=== PATIENT | female | born 1950 | race Caucasian/White ===

== ENCOUNTER 2025-05-07 10:37 | Inpatient (IN) ==
--- NOTE | 2025-04-17 14:36 | PAT Medication Instructions ---
Medication Instructions Date of Service April 17, 2025 Home Medications acetaminophen 650 mg tablet,extended release (Tylenol Arthritis Pain) 650 mg PO DAILY PRN Pain apixaban 2.5 mg tablet (Eliquis) 2.5 mg PO BID aspirin 81 mg tablet 81 mg PO QAM baclofen 5 mg tablet 5 mg PO TID calcitriol 0.25 mcg capsule 0.25 mcg PO BID cholecalciferol (vitamin D3) 125 mcg (5,000 unit) tablet (Vitamin D3) 125 mcg PO BID ferrous sulfate 325 mg (65 mg iron) tablet (Iron (ferrous sulfate)) 325 mg PO QAM furosemide 40 mg tablet 40 mg PO BID gabapentin 300 mg capsule 300 mg PO TID leflunomide 20 mg tablet 20 mg PO QAM metoprolol succinate 25 mg tablet,extended release 24 hr 25 mg PO QAM montelukast 10 mg tablet 10 mg PO HS sennosides 8.6 mg tablet (Vegetable Laxative) 8.6 mg PO QAM spironolactone 25 mg tablet 25 mg PO QAM tramadol 50 mg tablet 50 mg PO DAILY PRN Pain zinc 50 mg tablet 50 mg PO QAM MEDICATION INSTRUCTIONS: ASK your prescriber and surgeon apixaban 2.5 mg tablet (Eliquis) 2.5 mg PO BID aspirin 81 mg tablet 81 mg PO QAM DO NOT take the morning of surgery calcitriol 0.25 mcg capsule 0.25 mcg PO BID cholecalciferol (vitamin D3) 125 mcg (5,000 unit) tablet (Vitamin D3) 125 mcg PO BID zinc 50 mg tablet 50 mg PO QAM sennosides 8.6 mg tablet (Vegetable Laxative) 8.6 mg PO QAM ferrous sulfate 325 mg (65 mg iron) tablet (Iron (ferrous sulfate)) 325 mg PO QAM spironolactone 25 mg tablet 25 mg PO QAM furosemide 40 mg tablet 40 mg PO BID Take morning of surgery With a small sip of water, OTHERWISE NOTHING TO EAT OR DRINK AFTER MIDNIGHT: acetaminophen 650 mg tablet,extended release (Tylenol Arthritis Pain) 650 mg PO DAILY PRN Pain baclofen 5 mg tablet 5 mg PO TID metoprolol succinate 25 mg tablet,extended release 24 hr 25 mg PO QAM tramadol 50 mg tablet 50 mg PO DAILY PRN Pain gabapentin 300 mg capsule 300 mg PO TID Take evening before surgery acetaminophen 650 mg tablet,extended release (Tylenol Arthritis Pain) 650 mg PO DAILY PRN Pain baclofen 5 mg tablet 5 mg PO TID calcitriol 0.25 mcg capsule 0.25 mcg PO BID cholecalciferol (vitamin D3) 125 mcg (5,000 unit) tablet (Vitamin D3) 125 mcg PO BID furosemide 40 mg tablet 40 mg PO BID montelukast 10 mg tablet 10 mg PO HS gabapentin 300 mg capsule 300 mg PO TID Other Notes ASK your prescriber for instructions: leflunomide 20 mg tablet 20 mg PO QA If you have any questions please call us at [phone] or [phone] or [phone] or [phone]
--- NOTE | 2025-04-25 09:46 | Anesthesiology Consultation ---
Date of Service April 25, 2025 Assessment & Plan (1) Encounter for pre-operative examination: Chart Review Chart Review: Pending: Refer to Additional Notes / Consult section (pending surgeon ordered PCP clearance/response to optimization note and final surgeon ordered cardio clearance) and Patient seen in Pre Admission Testing - Awaiting PCP clearance 05/01/25 (Dr. Fernandes)- please send preop testing and optimization note re: elevated creatinine/anemia/possible reflux episode to PCP to address at appt - Awaiting addendum to cardio letter re: if patient is optimized to proceed with surgery (spoke with cardio office 04/26/25) Patient with [employer] ICD/pacemaker- discussed with Dr. Herrera- due to nature of procedure and lumbar levels being fused- pacemaker rep is NOT needed for DOS - Eliquis instructions per surgeon and prescribing provider- surgeon's office will follow up with patient re: instructions per email Per PAT appt on 04/25/25, no recent illness/disease exposures, illness related symptoms, or recent illness/disease positive tests. Will leave to surgeon's discretion if preop Covid testing needed Per cardiology letter 04/18/2025 = patient may hold her Eliquis for 72 hours prior and resume postop as soon as deemed safe by you. She can hold aspirin for shortest duration possible and resume postop as deemed safe. Patient seen by cardiology 01/01/2025 = patient seen for follow-up visit. Has been doing well clinically. Patient is considering proceeding with spinal surge ry. From a cardiac perspective, she has no new issues or complaints. Has stable THOMPSON. Atrial fibrillationparoxysmal/subclinical/asymptomatic. Continue Eliquis. Heart failure with recovered EF/nonischemic cardiomyopathy. Compensated. Echoes annually. Patient is an acceptable cardiac risk to undergo general anesthesia and spinal surgery if she is deemed a candidate from a neurosurgeon. We would need to check a stress test prior to her proceeding given her known chronic total occlusion of her LAD to ensure that she does not have large burden of ischemia. CRTDdevice functioning normally. Continue routine interrogations. Hypertensioncontrolled. Dyslipidemiaresume statin. CAD status post 2 LAD stents March 2022. Continue aspirin indefinitely. Follow- up in 6 months. Teaching & Discussion Pre-Anesthesia Teaching/Discussion Notes: Instructed NPO after midnight before surgery,except medications with 15 cc of water. Medication instructions provided according to the PAT guidelines. History Surgery Operation Date: 05/07/25 12:15 Proposed Procedures p L4-S1 Decompression and Fusion, Spinal Cord Monitoring - Raad Lagunas DO Height/Weight Height: 4 ft 8 in Weight: 52.4 kg Allergies Allergy/AdvReac Type Severity Reaction Status Date / Time No Known Allergies Allergy Verified 04/13/25 13:49 Medications Home Medications Medication Instructions Recorded Confirmed Last Taken acetaminophen 650 mg 650 mg PO DAILY PRN Pain 04/13/25 04/13/25 Unknown tablet,extended release (Tylenol Arthritis Pain) apixaban 2.5 mg tablet (Eliquis) 2.5 mg PO BID 04/13/25 04/13/25 Unknown aspirin 81 mg tablet 81 mg PO QAM 04/13/25 04/13/25 Unknown baclofen 5 mg tablet 5 mg PO TID 04/13/25 04/13/25 Unknown calcitriol 0.25 mcg capsule 0.25 mcg PO BID 04/13/25 04/13/25 Unknown cholecalciferol (vitamin D3) 125 125 mcg PO BID 04/13/25 04/13/25 Unknown mcg (5,000 unit) tablet (Vitamin D3) ferrous sulfate 325 mg (65 mg 325 mg PO QAM 04/13/25 04/13/25 Unknown iron) tablet (Iron (ferrous sulfate)) furosemide 40 mg tablet 40 mg PO BID 04/13/25 04/13/25 Unknown gabapentin 300 mg capsule 300 mg PO TID 04/13/25 04/13/25 Unknown leflunomide 20 mg tablet 20 mg PO QAM 04/13/25 04/13/25 Unknown metoprolol succinate 25 mg 25 mg PO QAM 04/13/25 04/13/25 Unknown tablet,extended release 24 hr montelukast 10 mg tablet 10 mg PO HS 04/13/25 04/13/25 Unknown sennosides 8.6 mg tablet 8.6 mg PO QAM 04/13/25 04/13/25 Unknown (Vegetable Laxative) spironolactone 25 mg tablet 25 mg PO QAM 04/13/25 04/13/25 Unknown tramadol 50 mg tablet 50 mg PO DAILY PRN Pain 04/13/25 04/13/25 Unknown zinc 50 mg tablet 50 mg PO QAM 04/13/25 04/13/25 Unknown Past Medical History Medical History (Updated 04/30/25 @ 13:38 by Janel Goldman PA-C) Atrial fibrillation eliquis/metoprolol--follows with [facility] Cardiology Dr. 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, distal Cx 50-60%, RCA 10%) History of anemia History of blood transfusion Around 04/2024 Hyperlipidemia Hypertension ICD (implantable cardioverter-defibrillator) in place [employer]-D - initially placed 02/2010 - new battery placed in 2020 Per patient- possible cardiac arrest during 2020 generator change for ICD - patient unsure of specifics- family members have no recollection of this- no documentation of this in cardio records (attempted to get anesthesia records but records were unavailable- has done well with other anesthesia) Nonischemic cardiomyopathy HF with recovered EF per cardio records On anticoagulant therapy eliquis Osteoarthritis Stage 3 chronic kidney disease TIA (transient ischemic attack) - presented with amnesia - 2008- no subsequent issues- no CVA noted per patient Exercise / Class Metabolic Activity III < 4 Walking/Shop/Light housework (one flight of stairs - no chest pain, mild SOB- occasional cane use ) Past Family History Family History Other No family history of adverse response to anesthesia Past Surgical History Surgical History History of appendectomy History of cardiac cath x2 2009 (prior to ICD placement) and 2021 (due to sob) both done at [facility]--with a total of 2 stents placed in 2021 History of section x2--appendix removed with 1st History of dilatation and curettage History of heart artery stent 2 stents placed--[facility] History of hysterectomy History of open reduction and internal fixation (ORIF) procedure left wrist--hardware in place History of tooth extraction all teeth removed S/P ICD (internal cardiac defibrillator) procedure [employer] Status post epidural steroid injection lumbar spine and bilt sacroiliac joint injections Past Anesthesia History No Hx of Anesthesia Complications and No Family Hx of Anesthesia Complications History of PONV No Hx of PONV and No Hx of Motion Sickness Social History Smoking Status: Never smoker Do You Dip or Chew Tobacco: No Hx Alcohol Use: No Hx Substance Use: No substance use type: does not use Review of Systems - Had "odd" sensation to mid sternal chest discomfort. Relieved with antacid. Lasted 20-25 minutes. No radiation. No SOB or nausea. No new THOMPSON. Had already been optimized by cardiology per patient- will send note to PCP inquiring if further work up or cardio re-evaluation needed - Rare reflux Patient denies shortness of breath, cough, wheezing, palpitations. No hx of seizures, apnea/loud snoring. No hx of blood clots Physical Exam Vital Signs VITALS BP 127/69 P 64 TEMP 97.5 SP02 96% RESP 16 Constitutional no acute distress ENMT Mouth: + small oral opening; no TMJ clicking Thyromental Distance: < 3.5 Finger Breadths (3.0) Mallampati Class: III Full dentures upper and lower Neck + limited neck extension Respiratory normal respiratory effort; no respiratory distress Auscultation: lungs clear to auscultation bilaterally; no wheezes Cardiovascular Heart Sounds: no murmur Vessels: no carotid bruit Irregularly irregular - rate controlled Musculoskeletal Spine: no pain with cervical ROM Extremities: extremities normal to inspection Psychiatric Orientation: alert Lab Results Anesthesia Preop Results Results Anesthesia Widget: WBC 9.59 K/ul (4.8-10.8) 04/25/25 Hgb 11.3 g/dl (12.0-16.0) L 04/25/25 Hct 35.0 % (37.0-47.0) L 04/25/25 Plt 329 K/uL (130-400) 04/25/25 Na 140 mmol/L (136-145) 04/25/25 K 3.4 mmol/L (3.5-5.1) L 04/25/25 Cl 102 mmol/L (98-107) 04/25/25 CO2 27 mmol/L (21-32) 04/25/25 BUN 36 mg/dl (6-23) H 04/25/25 Creat 1.68 mg/dl (0.6-1.2) H 04/25/25 Glucose Level 82 mg/dl (70-99(Fasting)) 04/25/25 PT 10.9 Seconds (9.0-12.0) 04/25/25 PTT 30 Seconds (21-31) 04/25/25 INR 1.0 (0.9-1.1) 04/25/25 Urine Color Yellow 04/25/25 Urine Appearance Clear (Clear) 04/25/25 Urine pH 5.0 (4.5-7.5) 04/25/25 Urine Specific [place] 1.008 (1.000-1.030) 04/25/25 Urine Protein Negative (Negative) 04/25/25 Urine Glucose (UA) Negative (Negative) 04/25/25 Urine Ketones Negative (Negative) 04/25/25 Urine Blood Negative (Negative) 04/25/25 Urine Nitrite Negative (Negative) 04/25/25 Urine Bilirubin Negative (Negative) 04/25/25 Urine Urobilinogen Negative (Negative) 04/25/25 Urine Leukocyte Esterase 1+ (Negative) H 04/25/25 Urine WBC (Auto) 0-5 /hpf (0-5) 04/25/25 Urine RBC (Auto) 0-2 /hpf (0-2) 04/25/25 Urine Hyaline Casts (Auto) 3-5 /lpf (0-2) H 04/25/25 Urine Epithelial Cells (Auto) 0-2 /hpf (0-2) 04/25/25 Urine Bacteria (Auto) None Seen (None Seen) 04/25/25 Blood Type O Positive 04/25/25 Antibody Screen NEGATIVE 04/25/25 Testing Laboratory Results Elevated creatinine- will send optimization note inquiring if this is baseline for patient Mild anemia- will send optimization note to PCP inquiring if this is baseline for patient Electrocardiogram Date: 04/25/25 Ventricular paced rhythm with occ PVCs at 82bpm Biventricular pacemaker detected Chest X-Ray Date: 04/25/25 Findings: + NAD Echocardiogram Date: 01/16/25 Normal LV size. LV has low normal systolic function Calculated LVEF 50% Abnormal septal motion consistent with abnormal electrical activation Normal RV size. The RV has normal function Thickened aortic valve Thickened mitral valve with mild regurgitation Mild to moderate TR Mild biatrial enlargement Moderate pulmonary hypertensionthe estimated PASP is 51 mmHg. Catheter seen in the right heart consistent with pacemaker defibrillator lead. Diastolic function could not be assessed due to indeterminate data. Dilated inferior vena cava, consistent with increased right atrial pressure As compared to 05/04/2024no significant change Stress Test Date: 01/25/25 Type: nuclear SPECT perfusion images are abnormal Resting perfusion abnormality in the lateral wall, consistent with prior infarction. There is no significant regadenoson induced perfusion abnormality detected to suggest the presence of ischemia LVEF is normal In this patient with known underlying CAD, the absence of significant regadenoson induced perfusion abnormality indicates that the probability of significant residual ischemia being present is low Cardiac Catheterization Date: 03/18/22 Indication: 99% stenosis of mid LAD. Impression: Successful angioplasty and stenting of subtotal occlusion of mid LAD with 2 ZURDO via right radial artery access. Cervical Spine Date: 04/25/25 No acute bony abnormality. Osteopenia. Slight anterior translation of the C3 vertebral body with flexion. (Surgeon's office informed to let Dr. Lagunas know) Other Testing ICD/pacemaker check 02/20/2025 = [employer] device. Implant date September 15, 2021. Battery life 7 years from February 20, 2025. Atrial paced 4%. RV paced 97%. LV paced 98%. Mode DDDR. Total events: 151 no therapy programmed, 23 NonSustV, 67 other untreated, 311 ATR
[2025-05-07] MEDS: LACTATED RINGER'S 1,000 ML IV SCH ×2 (10:07→15:35)
[~2025-05-07 10:37] MED LIST: CeleBREX 200 MG CAP PO SCH; DEXAMETHASONE SOD INJ 4 MG/ML VIAL ONE; GLYCOPYRROLATE 0.2 MG/ML VIAL ONE; LIDOCAINE 2% 2 ML VIAL/AMP(20MG/ML) INFIL ONE; MIDAZOLAM HCL 1 MG/ML 2ML VIAL ONE; ONDANSETRON INJ 2 MG/ML 2 ML VIAL ONE; PROPOFOL IV EMULSION 10 MG/ML 20 ML VIAL IV ONE; ROCURONIUM BROMIDE 10 MG/ML 5 ML VIAL IV ONE; SUGAMMADEX SODIUM 200 MG/2 ML VIAL IV ONE
[2025-05-07] MEDS: LR 60ML/HR IV SCH (11:33)
[2025-05-07] MEDS ORDERED: PROMETHAZINE HCL 6.25 MG in SODIUM CHLORIDE 0.9% 50 ML IV PRN (11:44)
[2025-05-07] MEDS ORDERED: HYDROmorphone INJ 2 MG/ML SYR/VIAL IV PRN (11:44)
[2025-05-07] MEDS ORDERED: ONDANSETRON INJ 2 MG/ML 2 ML VIAL IV PRN ×2 (11:44→15:20)
[2025-05-07] MEDS ORDERED: ATROPINE SULFATE 0.1 MG/ML 10ML SYR IV PRN (11:44)
--- NOTE | 2025-05-07 11:44 | History & Physical Bridge Note ---
Date of Service May 07, 2025 History & Physical Bridge Note I have examined the patient, reviewed the History & Physical and in the interval since the performance of the History & Physical I have noted the following changes of clinical significance: no changes noted
--- NOTE | 2025-05-07 11:45 | History & Physical Report ---
Date of Service May 07, 2025 Assessment & Plan (1) Two-level lumbosacral spondylosis with radiculopathy: Plan: Decompression and fusion L4-S1 History of Present Illness Chief Complaint: Back and bilateral leg pain Primary Care Provider: Yamilet Fernandes DO This is a 74-year-old female who presents with chronic persistent back and leg pain after failing course of nonoperative care is here for surgical invention. Allergies Allergy/AdvReac Type Severity Reaction Status Date / Time No Known Allergies Allergy Verified 05/07/25 10:59 Home Medications Medication Instructions Recorded Confirmed Type acetaminophen 650 mg 650 mg PO DAILY PRN Pain 04/13/25 05/07/25 History tablet,extended release (Tylenol Arthritis Pain) apixaban 2.5 mg tablet (Eliquis) 2.5 mg PO BID 04/13/25 05/07/25 History aspirin 81 mg tablet 81 mg PO QAM 04/13/25 05/07/25 History baclofen 5 mg tablet 5 mg PO TID 04/13/25 05/07/25 History calcitriol 0.25 mcg capsule 0.25 mcg PO BID 04/13/25 05/07/25 History cholecalciferol (vitamin D3) 125 125 mcg PO BID 04/13/25 05/07/25 History mcg (5,000 unit) tablet (Vitamin D3) ferrous sulfate 325 mg (65 mg 325 mg PO QAM 04/13/25 05/07/25 History iron) tablet (Iron (ferrous sulfate)) furosemide 40 mg tablet 40 mg PO BID 04/13/25 05/07/25 History gabapentin 300 mg capsule 300 mg PO TID 04/13/25 05/07/25 History leflunomide 20 mg tablet (Arava) 20 mg PO QAM 04/13/25 05/07/25 History metoprolol succinate 25 mg 25 mg PO QAM 04/13/25 05/07/25 History tablet,extended release 24 hr montelukast 10 mg tablet 10 mg PO HS 04/13/25 05/07/25 History (Singulair) sennosides 8.6 mg tablet 8.6 mg PO QAM 04/13/25 05/07/25 History (Vegetable Laxative) spironolactone 25 mg tablet 25 mg PO QAM 04/13/25 05/07/25 History tramadol 50 mg tablet 50 mg PO DAILY PRN Pain 04/13/25 05/07/25 History zinc 50 mg tablet 50 mg PO QAM 04/13/25 05/07/25 History Past Med/Surg History Problem List (Updated 05/07/25 @ 11:45 by Raad Lagunas DO) Two-level lumbosacral spondylosis with radiculopathy Encounter for pre-operative examination Medical History (Updated 05/07/25 @ 11:45 by Raad Lagunas DO) Nonischemic cardiomyopathy HF with recovered EF per cardio records TIA (transient ischemic attack) - presented with amnesia - 2008- no subsequent issues- no CVA noted per patient CAD (coronary artery disease) s/p 2 LAD stents March 2022 (Per 01/19/22 cath- 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, distal Cx 50-60%, RCA 10%) Osteoarthritis Stage 3 chronic kidney disease History of blood transfusion Around 04/2024 History of anemia Hypertension Hyperlipidemia On anticoagulant therapy eliquis ICD (implantable cardioverter-defibrillator) in place [employer] IN[employer]UMENT [employer]PER[employer]OR-D - initially placed 02/2010 - new battery placed in 2020 Per patient- possible cardiac arrest during 2020 generator change for ICD - patient unsure of specifics- family members have no recollection of this- no documentation of this in cardio records (attempted to get anesthesia records but records were unavailable- has done well with other anesthesia) Atrial fibrillation eliquis/metoprolol--follows with [facility] Cardiology Dr. Forest Barahona Surgical History History of heart artery stent 2 stents placed--[facility] Status post epidural steroid injection lumbar spine and bilt sacroiliac joint injections History of dilatation and curettage History of open reduction and internal fixation (ORIF) procedure left wrist--hardware in place History of appendectomy History of section x2--appendix removed with 1st History of hysterectomy History of tooth extraction all teeth removed S/P ICD (internal cardiac defibrillator) procedure [employer] History of cardiac cath x2 2009 (prior to ICD placement) and 2021 (due to sob) both done at [facility]--with a total of 2 stents placed in 2021 Family History Other No family history of adverse response to anesthesia Social History Smoking Status: Never smoker Second Hand Exposure: No; Do You Dip or Chew Tobacco: No; Tobacco Cessation Education Requested by Patient: No Hx Alcohol Use: No Hx Substance Use: No Preferred Language: Surinamese Communication Ability: Effective Scheduling Representative Required: No Beliefs That Will Affect Care: None Current Living Situation: Spouse Other Information That Helps Us Care for You: No Feels Safe at Home: Yes Safety Concerns: Feels Safe At This Time Assistive Devices: Denture - Upper, Denture - Lower and Glasses Physical Exam Physical Exam: Patient is alert and oriented Heart regular rhythm Lungs clear Results & Data Results & Data Vital Signs (Past 12 Hours) Vital Signs Temp Pulse Resp BP Pulse Ox O2 Del Method 05/07/25 11:16 36.4 C L 61 20 147/80 H 97 Room Air
[2025-05-07] MEDS: BUPIVACAINE/EPINEPHRINE 0.5% MPF 1:200,000 30 ML VIAL ONE (12:29)
[2025-05-07] MEDS: BUPIVACAINE/EPINEPHRINE 0.25% 1:200,000 30 ML VIAL ONE (12:29)
[2025-05-07] MEDS ORDERED: PHENYLEPHRINE 100MCG/ML 5ML SYR ONE (13:02)
[2025-05-07] MEDS: FLOSEAL HEMOSTATIC MATRIX 10ML TOP ONE (13:57)
[2025-05-07] MEDS: ceFAZolin 330 MG/ML 1 GM VIAL ONE (13:57)
--- NOTE | 2025-05-07 14:08 | Operative Report ---
Post Operative Report Pre & Post Diagnosis Operation Date: 05/07/25 12:15 Pre-Op Diagnosis: #1 Two Level Lumbosacral Spondylosis with Radiculopathy #2 spondylolisthesis L4-L5 #3 lumbar disc herniation L4-L5 with radiculopathy #4 lumbar spinal stenosis Post-Op Diagnosis: Same I identified the patient and participated in the time-out.: Yes Procedure Operation Date: 05/07/25 12:15 Actual Procedures #1 lumbar decompression with bilateral medial facetectomies and foraminotomies L3-L4, L4-5 and L5-S1. #2 posterior spinal fusion L4-S1. #3 placement po sterior instrumentation L4-S1 using medic Creo. #4 interbody fusion L4-L5 for #5 placed aspire 11 x 26 mm x 2 at L4-5 #6 placement locally harvested morselized autograft posterior gutters per #7 placement infuse collagen sponge combined with Koros in the posterior lateral gutters and os design and interbody space. #8 application of versa wrap of the exposed dura. Surgeon Raad Lagunas, Planning Division Superintendent Laura Roca Estimated Blood Loss 50 Findings Consistent with Post-Op Diagnosis Specimens None Indications This is a 74-year-old female presents above-mentioned diagnosis after failed course of nonoperative care she is here for surgical invention. Description of Procedure Patient was met with identified informed consent obtained. Patient was then taken to the operative suite underwent intubation placed in a prone position on the Cuong table atop the Rashard frame. All bony prominences well-padded eyes inspected to ensure no external pressure placed upon them. This point lumbar spine is prepped and draped in normal sterile fashion. Sharp dissection with the assistance of Bovie cautery from down to and exposing the lamina and transverse processes of L4-L5 and the sacral ala bilaterally. From caudal to cephalad fashion complete laminectomy of L5 was performed including bilateral medial facetectomies and foraminotomies followed by complete laminectomy of L4 with bilateral medial facetectomies and foraminotomies and lastly partial laminectomy of L3 with bilateral medial facetectomies to address all subar ticular stenosis. Massive disc herniation was noted at L4-5 bilaterally and excised in its entirety. Pedicle screws then placed in L4-L5 and S1 levels bilaterally with the assistance of fluoroscopy. By way the transforaminal portion of right discectomy of L4-L5 was performed endplates guided to subcortical bleeding bone and a 11 x 26 mm spiral cage filled with os design bone graft tapped in position. Then proceeded to the left transforaminal region at L4-5. Again discectomy performed. Endplates guided to subcortically bone. A second 11 x 26 mm spiral cage filled with os design bone graft tapped in position. Appropriate sized rods were then placed compressed and locked in final position bilaterally but the transverse processes of L4-5 and sacral ala burred to subcortical bleeding bone. Infuse collagen sponge combined with Koros and local autograft placed in the posterior gutters. First wrap placed over the exposed dura. 15 round PHIL drain inserted. The incision was then closed with 1 Vicryl the fascia 2-0 Vicryl subcutaneously and 4 Monocryl for final skin closure. Steri-Strips and sterile dressing placed. Patient waken taken to PACU in stable condition. Please note Laura Roca was present at the entire procedure and on the patient positioning complex portion of the surgery and final skin closure. I attest to the content of the Intraoperative Record and any orders documented therein. Any exceptions are noted below.
--- NOTE | 2025-05-07 14:25 | Fluoroscopy Report ---
FL lumbar spine 2-3V CLINICAL HISTORY: L4-S1 DECOMP AND FUSION COMPARISON STUDY: None FLUOROSCOPY TIME: 19 seconds FLUOROSCOPY IMAGES: 3 EXPOSURE DOSE: 9 mGy FINDINGS: Fluoroscopy was provided for lower lumbar fusion. IMPRESSION: Intraoperative fluoroscopy. ACT 112: Negative or not required by law. Electronically signed by: Darshan Deng M.D. 05/07/2025 2:24 PM
--- NOTE | 2025-05-07 15:12 | Anesthesiology Progress Note ---
Date of Service May 07, 2025 Anesthesia Post Procedure Vital Signs Vital Signs: Temp Pulse Pulse Resp BP Pulse Ox O2 Del Method 05/07/25 15:03 36.4 C L 81 12 154/87 H 92 Room Air 05/07/25 14:55 87 13 149/82 H 99 Room Air 05/07/25 14:45 96 H 12 154/83 H 100 Oxymask 05/07/25 14:35 100 H 12 155/89 H 100 Oxymask 05/07/25 14:26 35.7 C L 94 H 12 142/77 H 98 Oxymask 05/07/25 11:16 36.4 C L 61 20 147/80 H 97 Room Air O2 Flow Rate 05/07/25 15:03 0 05/07/25 14:55 0 05/07/25 14:45 4 05/07/25 14:35 8 05/07/25 14:26 8 05/07/25 11:16 Pain Intensity Right Upper Leg: Pain Intensity: 5 Transfer of Care Handoff Completed per policy Notes Mental Status: alert / awake / arousable and participated in evaluation Patient Amnestic to Procedure: Yes Nausea / Vomiting: adequately controlled Pain: adequately controlled Airway Patency, RR, SpO2: stable & adequate BP & HR: stable & adequate Hydration State: stable & adequate Anesthetic Complications: no major complications apparent
[2025-05-07] MEDS ORDERED: METOCLOPRAMIDE HCL INJ 5 MG/ML 2 ML VIAL IV PRN (15:20)
[2025-05-07] MEDS ORDERED: HYDROmorphone INJ 0.5 MG/0.5 ML SYR IV PRN (15:20)
[2025-05-07] MEDS ORDERED: LORazepam 0.5 MG TAB PO PRN (15:20)
[2025-05-07] MEDS ORDERED: ACETAMINOPHEN 1,000 MG/100 ML VIAL IV PRN (15:20)
[2025-05-07] MEDS ORDERED: HYDROmorphone INJ 1 MG/ML SYRINGE IV PRN (15:20)
[2025-05-07] MEDS ORDERED: MAGNESIUM HYDROXIDE SUSP 30 ML UDC PO PRN (15:20)
[2025-05-07] MEDS ORDERED: ONDANSETRON 4 MG OD TAB PO PRN (15:20)
[2025-05-07] MEDS ORDERED: NALOXONE HCL 0.4 MG/1 ML VIAL/CARP IV PRN (15:20)
[2025-05-07] MEDS ORDERED: PROMETHAZINE 12.5 MG/50.5 ML BAG IV PRN (15:20)
[2025-05-07] MEDS ORDERED: DO NOT ADMINISTER FLU VACCINE PRN (15:20)
[2025-05-07] MEDS ORDERED: DO NOT ADMINISTER PNEUMOCOCCAL VACCINE PRN (15:20)
[2025-05-07] MEDS ORDERED: ALUMINUM/MAGNESIUM SUSP 30 ML UDC PO PRN (15:20)
[2025-05-07] MEDS ORDERED: diphenhydrAMINE Capsule 25 MG CAP PO PRN (15:20)
[2025-05-07] MEDS ORDERED: SOD PHOSPHATE/SOD BIPHOSPHATE ENEMA 132 ML BTL PR PRN (15:20)
[2025-05-07] MEDS: ACETAMINOPHEN 500 MG TAB PO SCH (15:29)
[2025-05-07] MEDS: GABAPENTIN 300 MG CAP PO SCH ×2 (15:29→20:43)
--- NOTE | 2025-05-07 15:37 | Hospitalist Consultation ---
Date of Consultation May 07, 2025 Assessment & Plan (1) Two-level lumbosacral spondylosis with radiculopathy: (2) S/P spinal surgery: Patient is a 74-year-old female with past medical history significant for HLD, HTN, CAD s/p LAD stenting x 2 in March 2022, mild bilateral carotid artery stenosis, chronic systolic HF, history of idiopathic nonischemic cardiomyopathy with recovered EF, paroxysmal atrial fibrillation anticoagulated on Eliquis, LBBB, history PVCs, paroxysmal SVT s/p biventricular pacemaker placement, CKD stage IIIb, anemia of chronic disease, seronegative rheumatoid arthritis, IBS and other problems listed below who is being seen in consultation for routine postoperative medical management after undergoing elective L4-S1 decompression and fusion performed by Dr. Lagunas earlier today. POD #0 s/p L4-S1 decompression and fusion with Dr. Lagunas Per primary service for pain control, wound care, anticoagulation and activities Continue incentive spirometry, PT/OT when appropriate as per primary service Monitor H/H for ABLA [preop Hgb = 11.3, EBL = 50cc] and transfuse blood products PRN (3) Anemia of chronic disease: Baseline Hgb 10-12 Monitor postop H/H as per above, continue Fe supplementation (4) Paroxysmal A-fib: Hold Eliquis for now --> resume postop as per primary service Continue Toprol-XL w/ hold parameters (5) Rheumatoid arthritis: Hold leflunomide postop for now -Can resume as per primary service (6) CAD (coronary artery disease): S/p LAD stenting x 2 in 03/2022 F/w cardiology @ [facility]; continue ASA as per primary service (7) Stage 3b chronic kidney disease (CKD): Baseline Cr 1.3-1.7 per chart review Monitor AM labs, avoid nephrotoxic agents when able (8) Chronic systolic heart failure: TTE, 07/2023: LVEF = 55-60%, mild MR, mild TR, moderately enlarged LA, borderline pulm HTN, grade I DD Appears euvolemic on postop exam --> will hold Aldactone for now; hold Lasix for 2nite and resume tomorrow AM DVT Prophylaxis: As per primary service PCP: Yamilet Fernandes, Disposition: Routine d/c planning as per primary service Thank you for this consultation. We will follow the patient with you during their hospital stay. [facility] via [employer]. Patient seen in collaboration with Dr. Hernandez. Please see addendum. I spent a total of 42 minutes coordinating, documenting, and providing care for this patient excluding time spent in the performance of separately billed services or time spent by another provider/QHP. This included personally reviewing all current laboratories and imaging studies, medical reconciliation, outpatient chart review and discussion with specialists. This chart was completed in part utilizing Speech Voice Recognition Software. Grammatical errors, random word insertions, pronoun errors, and incomplete sentences are an occasional consequence of this system due to software limitations, ambient noise, and hardware issues. Any formal questions or concerns about the content, text, or information contained within the body of this dictation should be directly addressed to the provider for clarification. Supervising Physician Co-Signing Physician Notes I have seen and discussed the case with the collaborating advanced practitioner. I agree with the above H&P. I have reviewed and confirmed the patients medical history, the findings on physical examination, and the patients diagnosis and treatment plan with Arnold MORIN and agree with the information documented. In short, Ms. Lagunas is a 74 year old woman admitted for severe spinal stenosis with radiculopathy s/p lumbar decompression and fusion 05/07. Reports no pain on time of exam, with resolution of RLE symptoms. Denies any chest pain palpitations sob or other acute concerns Exam notable for a pleasant woman, no distress, RRR no apparent m/r/g, CTABL #Lumbar spondylosis with radiculopathy and stenosis s/p decompression and fusion L4-S1 POD 0 follow labs for post operative anemia PT/OT analgesia per primary #constipation last bm Wednesday, plan for bowel regimen #CKD III no postoperative hypotension noted, baseline 1.5-1.7 order BMP avoid nephrotoxic agents hold spironolactone for now, resume as able #Chronic anemia baseline 11~ trend cbc #PAF on eliquis, held for now, resume as soon as able per primary service continue BB #HFpEF s/p BiV defibrillator #chronic CAD s/p ZURDO x 2 2021 Echocardiogram from 2022 revealed the presence of preserved LVEF at 55-60% with mild MR, TR and grade 1 diastolic dysfunction. Resume ASA as soon as able per clearance of primary service Continue BB hold spironolactone clinically euvolemic if not on more dry side, old lasix until am rest of plan as above I spent a total of 15 minutes coordinating, documenting, and providing care for this patient excluding time spent in the performance of separately billed services. All of the aforementioned completed outside of collaborating with the assigned advanced practitioner for a full treatment plan. I have reviewed the advanced practitioner's documentation, and I agree with, and take responsibility for the plan of care History of Present Illness Reason for Consultation: Routine postoperative medical management Requesting Physician: Raad Lagunas DO Attending Physician: Raad Lagunas DO History of Present Illness Patient is a 74-year-old female with past medical history significant for HLD, HTN, CAD s/p LAD stenting x 2 in March 2022, mild bilateral carotid artery stenosis, chronic systolic HF, history of idiopathic nonischemic cardiomyopathy with recovered EF, paroxysmal atrial fibrillation anticoagulated on Eliquis, LBBB, history PVCs, paroxysmal SVT s/p biventricular pacemaker placement, CKD stage IIIb, anemia of chronic disease, seronegative rheumatoid arthritis, IBS and other problems listed below who is being seen in consultation for routine postoperative medical management after undergoing elective L4-S1 decompression and fusion performed by Dr. Lagunas earlier today. History obtained from the patient and associated chart review. Patient feeling well postoperatively; endorses adequate pain control. Tolerating sips of clear liquids without issue. Denies any SOB, chest pain, lightheadedness or dizziness. No reported N/V. Has Boo catheter in place which is draining spontaneously without issue. Denies any dysuria or hematuria. Also has PHIL drain x [address] which is draining serosanguineous output without difficulty. Allergies Allergy/AdvReac Type Severity Reaction Status Date / Time No Known Allergies Allergy Verified 05/07/25 10:59 Home Medications Medication Instructions Recorded Confirmed Type acetaminophen 650 mg 650 mg PO DAILY PRN Pain 04/13/25 05/07/25 History tablet,extended release (Tylenol Arthritis Pain) apixaban 2.5 mg tablet (Eliquis) 2.5 mg PO BID 04/13/25 05/07/25 History aspirin 81 mg tablet 81 mg PO QAM 04/13/25 05/07/25 History baclofen 5 mg tablet 5 mg PO TID 04/13/25 05/07/25 History calcitriol 0.25 mcg capsule 0.25 mcg PO BID 04/13/25 05/07/25 History cholecalciferol (vitamin D3) 125 125 mcg PO BID 04/13/25 05/07/25 History mcg (5,000 unit) tablet (Vitamin D3) ferrous sulfate 325 mg (65 mg 325 mg PO QAM 04/13/25 05/07/25 History iron) tablet (Iron (ferrous sulfate)) furosemide 40 mg tablet 40 mg PO BID 04/13/25 05/07/25 History gabapentin 300 mg capsule 300 mg PO TID 04/13/25 05/07/25 History leflunomide 20 mg tablet (Arava) 20 mg PO QAM 04/13/25 05/07/25 History metoprolol succinate 25 mg 25 mg PO QAM 04/13/25 05/07/25 History tablet,extended release 24 hr montelukast 10 mg tablet 10 mg PO HS 04/13/25 05/07/25 History (Singulair) sennosides 8.6 mg tablet 8.6 mg PO QAM 04/13/25 05/07/25 History (Vegetable Laxative) spironolactone 25 mg tablet 25 mg PO QAM 04/13/25 05/07/25 History tramadol 50 mg tablet 50 mg PO DAILY PRN Pain 04/13/25 05/07/25 History zinc 50 mg tablet 50 mg PO QAM 04/13/25 05/07/25 History Patient History Medical History Nonischemic cardiomyopathy HF with recovered EF per cardio records TIA (transient ischemic attack) - presented with amnesia - 2008- no subsequent issues- no CVA noted per patient CAD (coronary artery disease) s/p 2 LAD stents March 2022 (Per 01/19/22 cath- LAD 100% NEGATIVE SPOTTER, distal Cx 50-60%, RCA 10%) Osteoarthritis Stage 3 chronic kidney disease History of blood transfusion Around 04/2024 History of anemia Hypertension Hyperlipidemia On anticoagulant therapy eliquis ICD (implantable cardioverter-defibrillator) in place [employer]-D - initially placed 02/2010 - new battery placed in 2020 Per patient- possible cardiac arrest during 2020 generator change for ICD - patient unsure of specifics- family members have no recollection of this- no documentation of this in cardio records (attempted to get anesthesia records but records were unavailable- has done well with other anesthesia) Atrial fibrillation eliquis/metoprolol--follows with [facility] Cardiology Dr. Forest Barahona Surgical History History of heart artery stent 2 stents placed--[facility] Status post epidural steroid injection lumbar spine and bilt sacroiliac joint injections History of dilatation and curettage History of open reduction and internal fixation (ORIF) procedure left wrist--hardware in place History of appendectomy History of section x2--appendix removed with 1st History of hysterectomy History of tooth extraction all teeth removed S/P ICD (internal cardiac defibrillator) procedure [employer] History of cardiac cath x2 2009 (prior to ICD placement) and 2021 (due to sob) both done at [facility]--with a total of 2 stents placed in 2021 Family History Other No family history of adverse response to anesthesia Social History Smoking Status: Never smoker Second Hand Exposure: No; Do You Dip or Chew Tobacco: No; Tobacco Cessation Education Requested by Patient: No Hx Alcohol Use: No Hx Substance Use: No Preferred Language: Nauruan Communication Ability: Effective Vertica Architect Required: No Beliefs That Will Affect Care: None Current Living Situation: Spouse Other Information That Helps Us Care for You: No Feels Safe at Home: Yes Safety Concerns: Feels Safe At This Time Assistive Devices: Denture - Upper, Denture - Lower and Glasses Review of Systems Review of Systems: At least ten systems reviewed and negative, except as noted in the HPI. Physical Exam Physical Exam: General: Elderly F, NAD, sitting up in bed, pleasant, A&Ox3, family members present at bedside HEENT: Normocephalic, atraumatic, external ear and nose normal, oropharynx slightly dry Respiratory: Normal respiratory effort, lungs clear to auscultation bilaterally Cardiovascular: Regular rate, paced rhythm, normal peripheral pulses, no BLE edema, BLE SCDs/TEDs in place Abdomen/GI: Normal bowel sounds, soft, nontender to palpation in all quadrants : Boo catheter intact and draining clear/yellow urine w/o difficulty Extremities/MSK: No cyanosis/clubbing, surgical dressing on low back C/D/I, actively moves all extremities, PHIL drain x 1 intact and draining serosanguineous output Neurologic: No overt focal deficits, CN's II-XI not formally tested but appear grossly intact bilaterally Results & Data Results & Data Vital Signs (Past 12 Hours) Vital Signs Temp Pulse Pulse Resp BP Pulse Ox O2 Del Method 05/07/25 15:21 36.4 C L 89 16 157/73 H 94 Room Air 05/07/25 15:03 36.4 C L 81 12 154/87 H 92 Room Air 05/07/25 14:55 87 13 149/82 H 99 Room Air 05/07/25 14:45 96 H 12 154/83 H 100 Oxymask 05/07/25 14:35 100 H 12 155/89 H 100 Oxymask 05/07/25 14:26 35.7 C L 94 H 12 142/77 H 98 Oxymask 05/07/25 11:16 36.4 C L 61 20 147/80 H 97 Room Air O2 Flow Rate 05/07/25 15:21 05/07/25 15:03 0 05/07/25 14:55 0 05/07/25 14:45 4 05/07/25 14:35 8 05/07/25 14:26 8 05/07/25 11:16 Diagnostic Findings Lumbar Spine X-Ray 05/07/25 12:15 FL lumbar spine 2-3V CLINICAL HISTORY: L4-S1 DECOMP AND FUSION COMPARISON STUDY: None FLUOROSCOPY TIME: 19 seconds FLUOROSCOPY IMAGES: 3 EXPOSURE DOSE: 9 mGy FINDINGS: Fluoroscopy was provided for lower lumbar fusion. IMPRESSION: Intraoperative fluoroscopy. ACT 112: Negative or not required by law. Electronically signed by: Darshan Deng M.D. 05/07/2025 2:24 PM (5) Rheumatoid arthritis Rheumatoid arthritis location: unspecified site Rheumatoid factor presence: unspecified presence Qualified Code(s): M06.9 - Rheumatoid arthritis, unspecified (6) CAD (coronary artery disease) Associated angina: unspecified whether angina present Coronary Disease- Associated Artery/Lesion type: unspecified vessel or lesion type [place] vs. transplanted heart: unspecified whether [place] or transplanted heart Qualified Code(s): I25.10 - Atherosclerotic heart disease of [place] coronary artery without angina pectoris
[2025-05-07 16:47] LABS: Anion Gap 9.0 (3-11); Blood Urea Nitrogen 24.0 mg/dl (6-23); Calcium 9.7 mg/dl (8.6-10.3); Carbon Dioxide 26.0 mmol/L (21-32); Chloride 105.0 mmol/L (98-107); Creatinine Clr Calc Pharmacy 21.7 ml/min; Glucose 142.0 mg/dl (70-99(Fasting)); Magnesium 1.7 mg/dl (1.7-2.4); Potassium 3.5 mmol/L (3.5-5.1); Sodium 140.0 mmol/L (136-145)
[2025-05-07] MEDS: POLYETHYLENE (MIRALAX) 17 GM PACK PO SCH (16:53)
[2025-05-07] MEDS: DOCUSATE SODIUM/SENNA 50/8.6MG TAB PO SCH (20:42)
[2025-05-07] MEDS: CALCITRIOL 0.25 MCG CAPSULE PO SCH (20:42)
[2025-05-07] MEDS: MONTELUKAST SODIUM 10 MG TABLET PO SCH (20:43)
[2025-05-07] MEDS: CHOLECALCIFEROL 125 MCG (5,000 UNITS) TAB PO SCH (20:43)
[2025-05-08] MEDS ORDERED: POLYETHYLENE (MIRALAX) 17 GM PACK PO SCH (06:00)
[2025-05-08 06:37] LABS: Anion Gap 10.0 (3-11); Blood Urea Nitrogen 23.0 mg/dl (6-23); Calcium 9.0 mg/dl (8.6-10.3); Carbon Dioxide 26.0 mmol/L (21-32); Chloride 100.0 mmol/L (98-107); Creatinine Clr Calc Pharmacy 24.1 ml/min; Glucose 112.0 mg/dl (70-99(Fasting)); Magnesium 1.7 mg/dl (1.7-2.4); Potassium 3.7 mmol/L (3.5-5.1); Sodium 136.0 mmol/L (136-145)
[2025-05-08 07:06] LABS: Hematocrit (blood only) 27.4 % (37.0-47.0); Hemoglobin 8.9 g/dl (12.0-16.0); Mean Corpuscular Hemoglobin 29.2 pg (25.0-34.0); Mean Corpuscular Volume 89.8 fL (80.0-100.0); Platelet Count 246 K/uL (130-400); RDW Standard Deviation 47.1 fL (36.4-46.3); Red Blood Count 3.05 M/uL (4.20-5.40); White Blood Count 12.44 K/ul (4.8-10.8)
[2025-05-08 07:36] LABS: Immature Granulocytes # (auto) 0.08 K/uL (0.01-0.20); Immature Granulocytes % (auto) 0.6 %
--- NOTE | 2025-05-08 08:06 | Hospitalist Progress Note ---
Date of Service May 08, 2025 Assessment & Plan (1) Two-level lumbosacral spondylosis with radiculopathy: (2) S/P spinal surgery: Plan: Patient is a 74-year-old female with past medical history significant for HLD, HTN, CAD s/p LAD stenting x 2 in March 2022, mild bilateral carotid artery stenosis, chronic systolic HF, history of idiopathic nonischemic cardiomyopathy with recovered EF, paroxysmal atrial fibrillation anticoagulated on Eliquis, LBBB, history PVCs, paroxysmal SVT s/p biventricular pacemaker placement, CKD stage IIIb, anemia of chronic disease, seronegative rheumatoid arthritis, IBS and other problems listed below who s/p L4-S1 decompression and spinal fusion with Dr. Lagunas on 05/07/25. POD #1 s/p L4-S1 decompression and spinal fusion with Dr. Lagunas Per ortho for pain control, wound care, anticoagulation and activities Continue incentive spirometry, PT/OT when appropriate Acute blood loss anemia Known anemia with chronic disease at baseline Monitor H&H (hgb 8.9 down from 11.3), asymptomatic, transfuse blood products PRN Continue iron supplementation Daily CBC (3) Paroxysmal A-fib: Plan: Hold Eliquis for now --> resume postop as per primary service Continue Toprol-XL w/ hold parameters (4) Rheumatoid arthritis: Plan: Hold leflunomide postop for now Can resume as per primary service (5) CAD (coronary artery disease): Plan: S/p LAD stenting x 2 in 03/2022 F/w cardiology @ [facility]; continue ASA as per primary service (6) Stage 3b chronic kidney disease (CKD): Plan: Baseline Cr 1.3-1.7 per chart review Cr within range, monitor BMP daily while admitted Avoid nephrotoxic agents when able (7) Chronic systolic heart failure: Plan: TTE, 07/2023: LVEF = 55-60%, mild MR, mild TR, moderately enlarged LA, borderline pulm HTN, grade I DD Appears euvolemic on postop exam --> will hold Aldactone for now; resumed lasix DVT Prophylaxis: SCDs as per primary service PCP: Yamilet Fernandes, DO Disposition: Routine d/c planning as per primary service I spent a total of 50 minutes coordinating, documenting, and providing care for this patient excluding time spent in the performance of separately billed services or time spent by another provider/QHP. Patient seen in collaboration with Dr. Crawford. Please see addendum. Thank you for this consultation. We will follow the patient with you during their hospital stay. You can reach a member of the [facility]ist Team 10/05 via [employer]. Admission and Anticipated Discharge Date Admission Date: May 07, 2025 Supervising Physician Co-Signing Physician Notes I have reviewed the advanced practitioner's documentation on the date of service referred in note and agree with plan. Patient's care is coordinated with oJsie Gallegos PA-C. Please refer to the documentation above for details of patient's presentation and for discussion of issues. I did not examine the patient. Subjective Seen and examined in 306. Getting ready to participate with PT. Feeling well today, minimal surgical site pain. Tolerating diet, no N/V, participating with therapy. Review of Systems Review of Systems: At least ten systems reviewed and negative except as noted in the HPI. Physical Exam Physical Exam: Gen: WD/WN, NAD, elderly female, standing at bedside with PT, A&Ox3 HEENT: Normocephalic, atraumatic, mucous membranes moist Lung: Clear to Auscultation bilaterally Heart: Regular rate, regular rhythm Abdomen: Soft, NT, ND +BS x 4 Extremities: + Lumbar spine dressing c/d/i, no edema Skin: Warm, no rash Results & Data Results & Data Vital Signs (Past 12 Hours) Vital Signs Temp Pulse Resp BP Pulse Ox O2 Del Method 05/08/25 07:22 36.3 C L 53 L 14 104/63 96 Room Air 05/08/25 02:39 36.5 C 82 18 138/56 L 96 Room Air 05/07/25 22:53 36.4 C L 55 L 18 123/66 95 Room Air Laboratory Results Short CBC 05/07/25 05/08/25 05/08/25 Range/Units 16:06 05:23 06:54 WBC Cancelled Cancelled 12.44 H Hgb Cancelled Cancelled 8.9 L Hct Cancelled Cancelled 27.4 L Plt Count Cancelled Cancelled 246 BMP 05/07/25 05/08/25 16:06 05:23 Sodium 140 136 Potassium 3.5 3.7 Chloride 105 100 Carbon Dioxide 26 26 BUN 24 H 23 Creatinine 1.48 H 1.33 H Glucose 142 H 112 H Calcium 9.7 9.0 Diagnostic Findings Lumbar Spine X-Ray 05/07/25 12:15 FL lumbar spine 2-3V CLINICAL HISTORY: L4-S1 DECOMP AND FUSION COMPARISON STUDY: None FLUOROSCOPY TIME: 19 seconds FLUOROSCOPY IMAGES: 3 EXPOSURE DOSE: 9 mGy FINDINGS: Fluoroscopy was provided for lower lumbar fusion. IMPRESSION: Intraoperative fluoroscopy. ACT 112: Negative or not required by law. Electronically signed by: Darshan Deng M.D. 05/07/2025 2:24 PM (4) Rheumatoid arthritis Rheumatoid arthritis location: unspecified site Rheumatoid factor presence: unspecified presence Qualified Code(s): M06.9 - Rheumatoid arthritis, unspecified (5) CAD (coronary artery disease) Associated angina: unspecified whether angina present Coronary Disease- Associated Artery/Lesion type: unspecified vessel or lesion type [place] vs. transplanted heart: unspecified whether [place] or transplanted heart Qualified Code(s): I25.10 - Atherosclerotic heart disease of [place] coronary artery without angina pectoris
[2025-05-08] MEDS: SPIRONOLACTONE 25 MG TAB PO SCH (08:21)
[2025-05-08] MEDS: FERROUS SULFATE 325 MG TAB PO SCH (08:21)
[2025-05-08] MEDS: ASPIRIN 81 MG ECTAB PO SCH (08:21)
[2025-05-08] MEDS: dexAMETHasone 4 MG in SYRINGE 0 ML IV SCH (08:22)
[2025-05-08] MEDS: METOPROLOL SUCC 25MG EXT REL TAB PO SCH (08:29)
[2025-05-08] MEDS: FAMOTIDINE 20 MG TAB PO PRN (08:30)
[2025-05-08] MEDS ORDERED: SENNA 8.6 MG TAB PO SCH (09:00)
[2025-05-08] MEDS: FUROSEMIDE 40 MG TAB PO SCH (09:33)
--- NOTE | 2025-05-08 14:20 | Orthopedic Progress Note ---
Date of Service May 08, 2025 Assessment & Plan (1) Two-level lumbosacral spondylosis with radiculopathy: Admission and Anticipated Discharge Date Admission Date: May 07, 2025 Subjective Back pain controlled leg pain improved Physical Exam Physical Exam: Patient is in the chair at the bedside. Is constricted testing. Peers comfortable. Results & Data Vital Signs (Past 12 Hours) Vital Signs Temp Pulse Resp BP Pulse Ox O2 Del Method 05/08/25 11:00 36.8 C 68 14 101/64 95 Room Air 05/08/25 08:29 97 H 05/08/25 07:22 36.3 C L 53 L 14 104/63 96 Room Air 05/08/25 02:39 36.5 C 82 18 138/56 L 96 Room Air
[2025-05-08] MEDS: ACETAMINOPHEN 500 MG TAB PO PRN (19:52)
[2025-05-08 22:29] LABS: Hematocrit (blood only) 28.3 % (37.0-47.0); Hemoglobin 9.5 g/dl (12.0-16.0)
[2025-05-08] MEDS: METOPROLOL TARTRATE 25 MG TAB PO STA (22:42)
[2025-05-08 22:45] LABS: Anion Gap 11.0 (3-11); Blood Urea Nitrogen 31.0 mg/dl (6-23); Calcium 9.8 mg/dl (8.6-10.3); Carbon Dioxide 26.0 mmol/L (21-32); Chloride 100.0 mmol/L (98-107); Creatinine Clr Calc Pharmacy 16.9 ml/min; Glucose 151.0 mg/dl (70-99(Fasting)); Magnesium 1.8 mg/dl (1.7-2.4); Potassium 3.6 mmol/L (3.5-5.1); Sodium 137.0 mmol/L (136-145)
[2025-05-08] MEDS: SODIUM CHLORIDE 0.9% 500 ML IV ONE (22:47)
[2025-05-08] MEDS ORDERED: METOPROLOL TARTRATE 1 MG/ML VIAL IV PRN (23:04)
[2025-05-08] MEDS: METOPROLOL TARTRATE 1 MG/ML VIAL IV STA (23:08)
[2025-05-08] MEDS: SODIUM CHLORIDE 0.9% 1,000 ML IV SCH (23:19)
[2025-05-08] MEDS: MAGNESIUM SULFATE / D5W 1 GM/100 ML BAG IV ONE (23:19)
[2025-05-09] MEDS: DIGOXIN 125 MCG in SYRINGE 9.5 ML IV ONE (00:57)
[2025-05-09] MEDS: POTASSIUM CHLORIDE CRTAB 20 MEQ TABCR PO STA (00:57)
[2025-05-09] MEDS: METOPROLOL TARTRATE 1 MG/ML VIAL IV STA ×2 (03:35→03:55)
[2025-05-09 06:10] LABS: Hematocrit (blood only) 26.1 % (37.0-47.0); Hemoglobin 8.8 g/dl (12.0-16.0); Mean Corpuscular Hemoglobin 29.9 pg (25.0-34.0); Mean Corpuscular Volume 88.8 fL (80.0-100.0); Platelet Count 280 K/uL (130-400); RDW Standard Deviation 48.8 fL (36.4-46.3); Red Blood Count 2.94 M/uL (4.20-5.40); White Blood Count 12.97 K/ul (4.8-10.8)
[2025-05-09 06:16] LABS: Appearance Urine Clear (Clear); Glucose Urine UA Negative (Negative)
[2025-05-09 06:26] LABS: Anion Gap 10.0 (3-11); Blood Urea Nitrogen 31.0 mg/dl (6-23); Calcium 9.2 mg/dl (8.6-10.3); Carbon Dioxide 26.0 mmol/L (21-32); Chloride 104.0 mmol/L (98-107); Creatinine Clr Calc Pharmacy 18.9 ml/min; Glucose 100.0 mg/dl (70-99(Fasting)); Magnesium 2.3 mg/dl (1.7-2.4); Potassium 3.7 mmol/L (3.5-5.1); Sodium 140.0 mmol/L (136-145)
--- NOTE | 2025-05-09 08:32 | Orthopedic Progress Note ---
Date of Service May 09, 2025 Assessment & Plan (1) Two-level lumbosacral spondylosis with radiculopathy: Plan: This point we will await cardiology's recommendation. Would continue to encourage therapy as tolerated. Admission and Anticipated Discharge Date Admission Date: May 07, 2025 Subjective Patient unfortunately converted to atrial fibrillation last evening. This morning she denies shortness of breath or chest pain. Physical Exam Physical Exam: On exam she is in bed. She looks comfortable. She has good strength testing. Results & Data Vital Signs (Past 12 Hours) Vital Signs Temp Pulse Pulse Pulse Resp BP BP 05/09/25 08:08 100/68 05/09/25 07:40 37.0 C 149 H 23 05/09/25 04:49 156 H 05/09/25 04:33 152 H 05/09/25 04:10 146 H 110/78 05/09/25 03:57 146 H 05/09/25 03:55 146 H 104/75 05/09/25 03:50 146 H 104/75 05/09/25 03:35 146 H 104/71 05/09/25 03:35 146 H 05/09/25 02:29 36.5 C 135 H 20 05/09/25 01:11 141 H 05/09/25 00:57 145 H 05/09/25 00:56 133 H 05/09/25 00:38 146 H 05/08/25 23:22 137 H 118/68 05/08/25 23:08 152 H 109/74 05/08/25 23:02 166 H 05/08/25 22:58 148 H 05/08/25 22:37 36.5 C 160 H 20 05/08/25 21:50 36.7 C 152 H 16 BP Pulse Ox O2 Del Method 05/09/25 08:08 05/09/25 07:40 83/60 L 90 Room Air 05/09/25 04:49 107/73 05/09/25 04:33 92/64 L 05/09/25 04:10 05/09/25 03:57 104/75 05/09/25 03:55 05/09/25 03:50 05/09/25 03:35 05/09/25 03:35 104/71 05/09/25 02:29 110/70 96 Room Air 05/09/25 01:11 119/75 07/23/25 00:57 05/09/25 00:56 97/64 L 05/09/25 00:38 100/62 05/08/25 23:22 05/08/25 23:08 05/08/25 23:02 111/75 05/08/25 22:58 05/08/25 22:37 138/85 93 Room Air 05/08/25 21:50 92/65 L 96 Room Air
[2025-05-09] MEDS ORDERED: STAT IV Infusion **Titration per Protocol STA (08:59)
[2025-05-09] MEDS ORDERED: 0.2 MICRON FILTER SET 1 EACH IV STA (08:59)
[2025-05-09] MEDS ORDERED: AMIODARONE IV BOLUS & DRIP IV STA (08:59)
[2025-05-09] MEDS: AMIODARONE / D5W 150 MG/100 ML BAG IV STA (09:06)
[2025-05-09] MEDS: AMIODARONE / D5W 360 MG/200 ML BAG IV ONE (09:09)
[2025-05-09] MEDS: POTASSIUM CHLORIDE / WTR 10 MEQ/100 ML PLCT IV SCH (09:39)
--- NOTE | 2025-05-09 11:28 | Cardiology Consultation ---
Date of Consultation May 09, 2025 Assessment & Plan (1) Atrial fibrillation with rapid ventricular response: (2) Paroxysmal A-fib: (3) Stage 3b chronic kidney disease (CKD): (4) CAD (coronary artery disease): (5) Pacemaker: Plan Patient is a 74-year-old female status post spinal surgery who lapsed into atrial fibrillation earlier this morning minimally symptomatic. Heart rates remain elevated. Prior history of paroxysmal atrial fibrillation as well as coronary artery d isease. Anticoagulation currently contraindicated due to current surgical status given acute lapse will attempt to return to sinus rhythm promptly with IV amiodarone. Continue oral metoprolol. Goal to resume apixaban as soon as safe postoperatively. Surgical drain still in place Cardiology will follow History of Present Illness Reason for Consultation: Atrial fibrillation with rapid ventricular sponsor Requesting Physician: Du bowers Attending Physician: Raad Lagunas DO History of Present Illness Patient is a 74-year-old female followed by Dr. Barahona, [facility] cardiology. Presented for spinal surgery performed on 05/07/2025 without issue. Early a.m. today's lapsed into atrial fibrillation with with rapidventricular response. Minimally symptomatic, aware of heart rate beating faster. Patient's past medical history is notable for 1. Paroxysmal atrial fibrillation on chronic anticoagulation with Eliquis 2. Tachybradycardia syndrome status post dual-chamber pacemaker insertion 3. Atherosclerotic coronary disease prior LAD stent 2021 4. Stage IIIb chronic kidney disease Currently asymptomatic sitting up at bedside "back feels better. Is aware of her heart rate being elevated but no chest pain shortness of breath dizziness or lightheadedness. Surgical drain still in place. No fevers or chills no acute dyspnea no edema. Allergies Allergy/AdvReac Type Severity Reaction Status Date / Time No Known Allergies Allergy Verified 05/07/25 10:59 Home Medications Medication Instructions Recorded Confirmed Type acetaminophen 650 mg 650 mg PO DAILY PRN Pain 04/13/25 05/07/25 History tablet,extended release (Tylenol Arthritis Pain) apixaban 2.5 mg tablet (Eliquis) 2.5 mg PO BID 04/13/25 05/07/25 History aspirin 81 mg tablet 81 mg PO QAM 04/13/25 05/07/25 History baclofen 5 mg tablet 5 mg PO TID 04/13/25 05/07/25 History calcitriol 0.25 mcg capsule 0.25 mcg PO BID 04/13/25 05/07/25 History cholecalciferol (vitamin D3) 125 125 mcg PO BID 04/13/25 05/07/25 History mcg (5,000 unit) tablet (Vitamin D3) ferrous sulfate 325 mg (65 mg 325 mg PO QAM 04/13/25 05/07/25 History iron) tablet (Iron (ferrous sulfate)) furosemide 40 mg tablet 40 mg PO BID 04/13/25 05/07/25 History gabapentin 300 mg capsule 300 mg PO TID 04/13/25 05/07/25 History leflunomide 20 mg tablet (Arava) 20 mg PO QAM 04/13/25 05/07/25 History metoprolol succinate 25 mg 25 mg PO QAM 04/13/25 05/07/25 History tablet,extended release 24 hr montelukast 10 mg tablet 10 mg PO HS 04/13/25 05/07/25 History (Singulair) sennosides 8.6 mg tablet 8.6 mg PO QAM 04/13/25 05/07/25 History (Vegetable Laxative) spironolactone 25 mg tablet 25 mg PO QAM 04/13/25 05/07/25 History tramadol 50 mg tablet 50 mg PO DAILY PRN Pain 04/13/25 05/07/25 History zinc 50 mg tablet 50 mg PO QAM 04/13/25 05/07/25 History oxycodone 5 mg tablet 5 mg PO Q6H PRN pain #30 tabs 05/08/25 Rx tramadol 50 mg tablet 50 mg PO Q6H PRN pain, moderate 05/08/25 Rx #30 tabs Patient History Medical History Nonischemic cardiomyopathy HF with recovered EF per cardio records TIA (transient ischemic attack) - presented with amnesia - 2008- no subsequent issues- no CVA noted per patient CAD (coronary artery disease) s/p 2 LAD stents March 2022 (Per 01/19/22 cath- 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, distal Cx 50-60%, RCA 10%) Osteoarthritis Stage 3 chronic kidney disease History of blood transfusion Around 04/2024 History of anemia Hypertension Hyperlipidemia On anticoagulant therapy eliquis ICD (implantable cardioverter-defibrillator) in place [employer] - initially placed 02/2010 - new battery placed in 2020 Per patient- possible cardiac arrest during 2020 generator change for ICD - patient unsure of specifics- family members have no recollection of this- no documentation of this in cardio records (attempted to get anesthesia records but records were unavailable- has done well with other anesthesia) Atrial fibrillation eliquis/metoprolol--follows with [facility] Cardiology Dr. Forest Barahona Surgical History History of heart artery stent 2 stents placed--[facility] Status post epidural steroid injection lumbar spine and bilt sacroiliac joint injections History of dilatation and curettage History of open reduction and internal fixation (ORIF) procedure left wrist--hardware in place History of appendectomy History of section x2--appendix removed with 1st History of hysterectomy History of tooth extraction all teeth removed S/P ICD (internal cardiac defibrillator) procedure [place] History of cardiac cath x2 2009 (prior to ICD placement) and 2021 (due to sob) both done at [facility]--with a total of 2 stents placed in 2021 Family History Other No family history of adverse response to anesthesia Social History Smoking Status: Never smoker Second Hand Exposure: No; Do You Dip or Chew Tobacco: No; Tobacco Cessation Education Requested by Patient: No Hx Alcohol Use: No Hx Substance Use: No Preferred Language: Danish Communication Ability: Effective Stemmer Machine Required: No Beliefs That Will Affect Care: None Current Living Situation: Spouse Other Information That Helps Us Care for You: No Feels Safe at Home: Yes Safety Concerns: Feels Safe At This Time Assistive Devices: Cane and Glasses Review of Systems Review of Systems: All systems reviewed & are unremarkable except as noted in HPI & below Physical Exam Constitutional: WD/WN, vitals as above Eyes: PERRL, conjunctivae normal, anicteric sclerae ENMT: external ear and nose normal, oropharynx normal Neck: trachea midline, no thyromegaly Respiratory: normal respiratory effort, lungs clear to auscultation Cardiovascular: Rate/Rhythm: + tachycardic and + irregularly irregular Heart Sounds: normal S1 and normal S2; no murmur Vessels: normal carotid upstroke, femoral pulses present and radial pulses present; no JVD Extremities: no edema Gastrointestinal (Abdomen): normal bowel sounds, soft, nontender, no hepatosplenomegaly Results & Data Vital Signs (Past 12 Hours) Vital Signs Temp Pulse Pulse Pulse Resp BP BP 05/09/25 08:08 100/68 05/09/25 07:40 37.0 C 149 H 23 05/09/25 04:49 156 H 05/09/25 04:33 152 H 05/09/25 04:10 146 H 110/78 05/09/25 03:57 146 H 05/09/25 03:55 146 H 104/75 05/09/25 03:50 146 H 104/75 05/09/25 03:35 146 H 104/71 05/09/25 03:35 146 H 05/09/25 02:29 36.5 C 135 H 20 05/09/25 01:11 141 H 05/09/25 00:57 145 H 05/09/25 00:56 133 H 05/09/25 00:38 146 H BP Pulse Ox O2 Del Method 05/09/25 08:08 05/09/25 07:40 83/60 L 90 Room Air 05/09/25 04:49 107/73 05/09/25 04:33 92/64 L 05/09/25 04:10 05/09/25 03:57 104/75 05/09/25 03:55 05/09/25 03:50 05/09/25 03:35 05/09/25 03:35 104/71 05/09/25 02:29 110/70 96 Room Air 05/09/25 01:11 119/75 05/09/25 00:57 05/09/25 00:56 97/64 L 05/09/25 00:38 100/62 Laboratory Results Laboratory Results - last 24 hr 05/08/25 05/09/25 05/09/25 22:15 01:38 05:43 WBC 12.97 H RBC 2.94 L Hgb 9.5 L 8.8 L Hct 28.3 L 26.1 L MCV 88.8 MCH 29.9 MCHC 33.7 RDW Std Deviation 48.8 H RDW Coeff of [place] 15.0 H Plt Count 280 MPV 10.2 Sodium 137 140 Potassium 3.6 3.7 Chloride 100 104 Carbon Dioxide 26 26 Anion Gap 11 10 BUN 31 H 31 H Creatinine 1.90 H D 1.70 H Est Cr Clr Drug Dosing 16.9 18.9 eGFR 27.03 30.89 BUN/Creatinine Ratio 16.3 18.2 Glucose 151 H 100 H Calcium 9.8 9.2 Phosphorus 3.9 Magnesium 1.8 2.3 Troponin I High Sens 34.3 H 52.3 H* D 71.4 H* D Urine Color Urine Appearance Urine pH Ur Specific [place] Urine Protein Urine Glucose (UA) Urine Ketones Urine Blood Urine Nitrite Urine Bilirubin Urine Urobilinogen Ur Leukocyte Esterase Urine Comment 05/09/25 06:06 WBC RBC Hgb Hct MCV MCH MCHC RDW Std Deviation RDW Coeff of [place] Plt Count MPV Sodium Potassium Chloride Carbon Dioxide Anion Gap BUN Creatinine Est Cr Clr Drug Dosing eGFR BUN/Creatinine Ratio Glucose Calcium Phosphorus Magnesium Troponin I High Sens Urine Color Yellow Urine Appearance Clear Urine pH 5.5 Ur Specific [place] 1.009 Urine Protein Negative Urine Glucose (UA) Negative Urine Ketones Negative Urine Blood Negative Urine Nitrite Negative Urine Bilirubin Negative Urine Urobilinogen Negative Ur Leukocyte Esterase Negative Urine Comment PG Care Time/CCT Total # of Minutes Spent Total Time Spent with Patient: Total time spent is greater than 50% in coordination of care (as documented) at patient's floor/unit and/or counseling patient: Coding Level of Care Code 53856 IN/OBS CONSULT LVL 5,80M Diagnoses Atrial fibrillation with rapid ventricular response I48.91 Paroxysmal A-fib I48.0 Stage 3b chronic kidney disease (CKD) N18.32 Coronary artery disease, unspecified vessel or lesion type, unspecified whether angina present, unspecified whether [place] or transplanted heart I25.10 Coronary Disease-Associated Artery/Lesion type: unspecified vessel or lesion type [place] vs. transplanted heart: unspecified whether [place] or transplanted heart Associated angina: unspecified whether angina present Pacemaker Z95.0 (4) CAD (coronary artery disease) Coronary Disease-Associated Artery/Lesion type: unspecified vessel or lesion type [place] vs. transplanted heart: unspecified whether [place] or transplanted heart Associated angina: unspecified whether angina present Qualified Code(s): I25.10 - Atherosclerotic heart disease of [place] coronary artery without angina pectoris
[2025-05-09] MEDS: AMIODARONE / D5W 360 MG/200 ML BAG IV SCH (14:58)
--- NOTE | 2025-05-09 15:49 | Hospitalist Progress Note ---
Date of Service May 09, 2025 Assessment & Plan (1) Two-level lumbosacral spondylosis with radiculopathy: (2) S/P spinal surgery: Plan: Patient is a 74-year-old female with past medical history significant for HLD, HTN, CAD s/p LAD stenting x 2 in March 2022, mild bilateral carotid artery stenosis, chronic systolic HF, history of idiopathic nonischemic cardiomyopathy with recovered EF, paroxysmal atrial fibrillation anticoagulated on Eliquis, LBBB, history PVCs, paroxysmal SVT s/p biventricular pacemaker placement, CKD stage IIIb, anemia of chronic disease, seronegative rheumatoid arthritis, IBS and other problems listed below who s/p L4-S1 decompression and spinal fusion with Dr. Lagunas on 05/07/25. Lumbosacral spondylosis with radiculopathy Lumbar disc herniation, stenosis Postoperative acute blood loss anemia --S/P lumbar decompression, fusion surgery by Dr. Lagunas on 05/07/2025 Wound care, activity, pain control as per primary team Continue bowel regimen to prevent constipation Continue PT OT A-fib RVR Troponin elevation likely demand ischemia secondary to tachycardia --ECHO: Mild concentric LVH. Septal motion consistent with conduction abnormality. No regional wall motion abnormality. EF 50 to 55%. Left atrium is moderately dilated. Trace mitral regurgitation, moderate tricuspid regurgitation. Right ventricular systolic pressure elevated at 40 to 50 mmHg --Started on IV amiodarone -Continue metoprolol succinate --Appreciate cardiology input --Resume anticoagulation with Eliquis as soon as possible once cleared by surgery --Monitor and replete electrolytes as needed Acute blood loss anemia Currently no indication for blood transfusion Monitor CBC Continue iron supplements (3) Paroxysmal A-fib: Plan: Management as above (4) Rheumatoid arthritis: Plan: Hold leflunomide postop for now Can resume as per primary service (5) CAD (coronary artery disease): Plan: S/p LAD stenting x 2 in 03/2022 F/w cardiology @ [facility] [place]; continue ASA as per primary service (6) Stage 3b chronic kidney disease (CKD): Plan: Baseline Cr 1.3-1.7 per chart review Cr at baseline Avoid nephrotoxic agents when able Monitor renal function (7) Chronic systolic heart failure: Plan: TTE, 07/2023: LVEF = 55-60%, mild MR, mild TR, moderately enlarged LA, borderline pulm HTN, grade I DD Appears euvolemic on postop exam --> will hold Aldactone for now; resumed lasix DVT PX: SCDs as per primary service Resume Eliquis as soon as possible PCP: Yamilet Fernandes DO Disposition: Routine d/c planning as per primary service Admission and Anticipated Discharge Date Admission Date: May 07, 2025 Subjective Patient is seen and examined at bedside Reports having palpitations overnight which improved this morning Also reports having some dyspnea intermittently States having chronic dysphagia Denies any chest pain, nausea, vomiting, dizziness No other complaints Tachycardic on monitor, on IV amiodarone Review of Systems Review of Systems: All systems reviewed & are unremarkable except as noted in Subjective Physical Exam Physical Exam: Physical Exam: Vitals signs as noted above General Appearance:Moderately built and nourished, no apparent distress Head: normocephalic, Atraumatic Eyes: normal inspection, EOMI Neck: supple, Trachea midline Respiratory/Chest: Normal breath sounds, CTA, No accessory muscle use Cardiovascular: Irregularly irregular, tachycardia No murmur Abdomen/GI:Soft, Non tender, Bowel sounds present Extremities/Musculoskeletal:normal inspection, no edema Back: Lower back surgical site in dressing Neurologic/Psych:AAOX3, grossly no focal neurological deficits Skin: normal color, warm Results & Data Results & Data Vital Signs (Past 12 Hours) Vital Signs Temp Pulse Pulse Pulse Resp BP BP 05/09/25 11:33 36.9 C 112 H 22 101/68 05/09/25 08:08 100/68 05/09/25 07:40 37.0 C 149 H 23 05/09/25 04:49 156 H 05/09/25 04:33 152 H 05/09/25 04:10 146 H 110/78 05/09/25 03:57 146 H 05/09/25 03:55 146 H 104/75 05/09/25 03:50 146 H 104/75 BP Pulse Ox O2 Del Method 05/09/25 11:33 94 Room Air 05/09/25 08:08 05/09/25 07:40 83/60 L 90 Room Air 05/09/25 04:49 107/73 05/09/25 04:33 92/64 L 05/09/25 04:10 05/09/25 03:57 104/75 05/09/25 03:55 05/09/25 03:50 Laboratory Results Short CBC 05/08/25 05/09/25 Range/Units 22:15 05:43 WBC 12.97 H (4.8-10.8) K/ul Hgb 9.5 L 8.8 L (12.0-16.0) g/dl Hct 28.3 L 26.1 L (37.0-47.0) % Plt Count 280 (130-400) K/uL BMP 05/08/25 05/09/25 22:15 05:43 Sodium 137 140 Potassium 3.6 3.7 Chloride 100 104 Carbon Dioxide 26 26 BUN 31 H 31 H Creatinine 1.90 H D 1.70 H Glucose 151 H 100 H Calcium 9.8 9.2 Urine 05/09/25 Range/Units 06:06 Urine Color Yellow Urine Appearance Clear (Clear) Urine pH 5.5 (4.5-7.5) Ur Specific [place] 1.009 (1.000-1.030) Urine Protein Negative (Negative) Urine Glucose (UA) Negative (Negative) (4) Rheumatoid arthritis Rheumatoid arthritis location: unspecified site Rheumatoid factor presence: unspecified presence Qualified Code(s): M06.9 - Rheumatoid arthritis, unspecified (5) CAD (coronary artery disease) Coronary Disease-Associated Artery/Lesion type: unspecified vessel or lesion type [place] vs. transplanted heart: unspecified whether [place] or transplanted heart Associated angina: unspecified whether angina present Qualified Code(s): I25.10 - Atherosclerotic heart disease of [place] coronary artery without angina pectoris
--- NOTE | 2025-05-09 17:58 | Communication Note ---
Date of Service: May 09, 2025 Patient with spontaneous conversion to sinus rhythm earlier this afternoon intermittent pacing. Good tolerance no cardiac complaints. Will continue IV amiodarone overnight Would transition to oral 200 mg twice per day tomorrow with planned at least 1 month of treatment. Follow-up with primary lead ramp agent post discharge Resume anticoagulation with Eliquis when stable surgically
[2025-05-09] MEDS ORDERED: Nursing to Pharmacy Communication SCH (21:00)
[2025-05-10 05:57] LABS: Hematocrit (blood only) 24.7 % (37.0-47.0); Hemoglobin 8.2 g/dl (12.0-16.0); Mean Corpuscular Hemoglobin 29.7 pg (25.0-34.0); Mean Corpuscular Volume 89.5 fL (80.0-100.0); Platelet Count 233 K/uL (130-400); RDW Standard Deviation 48.4 fL (36.4-46.3); Red Blood Count 2.76 M/uL (4.20-5.40); White Blood Count 9.75 K/ul (4.8-10.8)
[2025-05-10 06:23] LABS: Anion Gap 10.0 (3-11); Blood Urea Nitrogen 37.0 mg/dl (6-23); Calcium 8.8 mg/dl (8.6-10.3); Carbon Dioxide 27.0 mmol/L (21-32); Chloride 100.0 mmol/L (98-107); Creatinine Clr Calc Pharmacy 19.5 ml/min; Glucose 93.0 mg/dl (70-99(Fasting)); Potassium 3.6 mmol/L (3.5-5.1); Sodium 137.0 mmol/L (136-145)
--- NOTE | 2025-05-10 08:14 | Orthopedic Progress Note ---
Date of Service May 10, 2025 Assessment & Plan (1) Two-level lumbosacral spondylosis with radiculopathy: Plan: At this time we will continue physical therapy monitor her PHIL output. Possible discharge home if cleared by medicine tomorrow. Reasonable to begin Eliquis tomorrow. Admission and Anticipated Discharge Date Admission Date: May 07, 2025 Subjective Patient's back pain is controlled leg symptoms markedly improved. She is tolerating physical therapy. Denies any shortness of breath or chest pain this morning. Physical Exam Physical Exam: Patient is stable at the bedside. She is constricted testing. Is comfortable. Results & Data Vital Signs (Past 12 Hours) Vital Signs Temp Pulse Pulse Pulse Resp BP Pulse Ox 05/10/25 07:38 36.7 C 70 18 128/71 95 05/10/25 02:31 36.5 C 69 18 137/68 97 05/09/25 22:58 55 L 05/09/25 22:35 36.5 C 61 18 102/56 L 97 O2 Del Method 05/10/25 07:38 Room Air 05/10/25 02:31 Room Air 05/09/25 22:58 05/09/25 22:35 Room Air
--- NOTE | 2025-05-10 09:25 | Cardiology Progress Note ---
Date of Service May 10, 2025 Assessment & Plan (1) Atrial fibrillation with rapid ventricular response: (2) Paroxysmal A-fib: (3) Stage 3b chronic kidney disease (CKD): (4) CAD (coronary artery disease): (5) Pacemaker: Plan 74-year-old woman status post spinal surgery + atrial fibrillation post operatively Patient appears to be in NSR K+ goal 4.5-5 Mag goal >[address] Plans to consider anticoagulation when safe from surgical perspective 50 min spent addressing challenges, educating and advancing daily plan of care Admission and Anticipated Discharge Date Admission Date: May 07, 2025 Subjective Events Overnight: * None Subjective: * No complaints * Back pain is controlled Review of Systems Review of Systems: All systems reviewed & are unremarkable except as noted in HPI & below Results & Data Vital Signs (Past 12 Hours) Vital Signs Temp Pulse Pulse Pulse Resp BP Pulse Ox 05/10/25 08:59 05/10/25 07:38 36.7 C 70 18 128/71 95 05/10/25 02:31 36.5 C 69 18 137/68 97 05/09/25 22:58 55 L 05/09/25 22:35 36.5 C 61 18 102/56 L 97 O2 Del Method 05/10/25 08:59 Room Air 05/10/25 07:38 Room Air 05/10/25 02:31 Room Air 05/09/25 22:58 05/09/25 22:35 Room Air Laboratory Results CBC 05/10/25 Range/Units 05:42 WBC 9.75 (4.8-10.8) K/ul RBC 2.76 L (4.20-5.40) M/uL Hgb 8.2 L (12.0-16.0) g/dl Hct 24.7 L (37.0-47.0) % Plt Count 233 (130-400) K/uL Comprehensive Metabolic Panel 05/10/25 Range/Units 05:42 Sodium 137 (136-145) mmol/L Potassium 3.6 (3.5-5.1) mmol/L Chloride 100 (98-107) mmol/L Carbon Dioxide 27 (21-32) mmol/L BUN 37 H (6-23) mg/dl Creatinine 1.64 H (0.6-1.2) mg/dl Glucose 93 (70-99(Fasting)) mg/dl Calcium 8.8 (8.6-10.3) mg/dl Intake and Output 05/09/25 05/10/25 05/10/25 22:59 06:59 14:59 Intake Total 350 / 2868.092 815.092 / 2868.092 Output Total 80 / 160 50 / 160 Balance 270 / 2708.092 765.092 / 2708.092 -1 Intake: IV 200 / 1608.092 185.092 / 1608.092 Amiodarone / D5w 360 mg In 200 200 / 385.092 185.092 / 385.092 ml @ 0.5 MG/MIN 16.667 mls/hr IV .Q12H [facility] Rx#:[id number] Oral 150 / 1260 630 / 1260 Output: Drain Output 80 / 160 50 / 160 Lower Back PHIL #1 80 / 160 50 / 160 # Bowel Movements Other: # Unmeasured Voids 1 1 Medications Administered Current Inpatient Medications Acetaminophen (Acetaminophen 500 Mg Tab) 1,000 mg PO Q8H PRN PRN Reason: MILD Pain (1,2,3) & Pre PT Stop: 06/06/25 15:19 Last Admin: 05/08/25 19:52 Dose: 1,000 mg Al Hydrox/Mg Hydrox/Simethicone (Aluminum/Magnesium Susp 30 Ml Udc) 30 ml PO Q6H PRN PRN Reason: Dyspepsia Stop: 06/06/25 15:19 Aspirin (Aspirin 81 Mg Ectab) 81 mg PO QAM [facility] Stop: 06/07/25 08:59 Last Admin: 05/10/25 07:43 Dose: 81 mg Bisacodyl (Bisacodyl 10 Mg Supp) 10 mg [place] DAILY PRN PRN Reason: Constipation Stop: 06/06/25 15:19 Calcitriol (Calcitriol 0.25 Mcg Capsule) 0.25 mcg PO BID [facility] Stop: 06/06/25 20:59 Last Admin: 05/10/25 07:42 Dose: 0.25 mcg Diphenhydramine HCl (Diphenhydramine Capsule 25 Mg Cap) 25 mg PO Q6H PRN PRN Reason: Allergic Rhinitis/Insomnia Stop: 06/06/25 15:19 Famotidine (Famotidine 20 Mg Tab) 20 mg PO Q12H PRN PRN Reason: Dyspepsia Stop: 06/06/25 15:19 Last Admin: 05/08/25 08:30 Dose: 20 mg Ferrous Sulfate (Ferrous Sulfate 325 Mg Tab) 325 mg PO QAM [facility] Stop: 06/07/25 08:59 Last Admin: 05/10/25 07:42 Dose: 325 mg Furosemide (Furosemide 40 Mg Tab) 40 mg PO BID [facility] Stop: 06/06/25 20:59 Last Admin: 05/10/25 07:42 Dose: 40 mg Gabapentin (Gabapentin 300 Mg Cap) 300 mg PO TID [facility] Stop: 06/06/25 20:59 Last Admin: 05/10/25 07:43 Dose: 300 mg Hydromorphone HCl (Hydromorphone Inj 0.5 Mg/0.5 Ml Syr) 0.5 mg IV Q3H PRN PRN Reason: MODERATE Pain(4,5,6)/Pre PT Stop: 05/21/25 15:19 Hydromorphone HCl (Hydromorphone Inj 1 Mg/Ml Syringe) 1 mg IV Q3H PRN PRN Reason: SEVERE Pain (7,8,9,10) Stop: 05/21/25 15:19 Promethazine HCl (Phenergan) 12.5 mg in 50.5 mls @ 202 mls/hr IV Q6H PRN PRN Reason: Nausea And Vomiting Stop: 06/06/25 15:19 Cefazolin Sodium (Ancef 1000mg) 1,000 mg in 7.5 mls @ 2.5 mls/min IV Q12H [facility] Stop: 05/15/25 14:29 Last Admin: 05/10/25 02:03 Dose: 2.5 mls/min Amiodarone HCl/Dextrose (Nexterone / D5w) 360 mg in 200 mls @ 16.667 mls/hr IV .Q12H [facility] Stop: 06/08/25 14:59 Last Admin: 05/10/25 02:03 Dose: 0.5 mg/min, 16.7 mls/hr Influenza Virus Vaccine Quadrival (Do Not Administer Flu Vaccine) 1 each N/A PRN PRN PRN Reason: Notification Stop: 06/06/25 15:19 Lorazepam (Lorazepam 0.5 Mg Tab) 0.5 mg PO Q8H PRN PRN Reason: Sedation/Anxiety Stop: 06/06/25 15:19 Lorazepam (Lorazepam 2 Mg/1 Ml Vial) 0.5 mg IV Q8H PRN PRN Reason: Sedation/Anxiety Stop: 06/06/25 15:19 Magnesium Hydroxide (Magnesium Hydroxide Susp 30 Ml Udc) 30 ml PO Q24H PRN PRN Reason: Constipation Stop: 06/06/25 15:19 Metoclopramide HCl (Metoclopramide Hcl Inj 5 Mg/Ml 2 Ml Vial) 10 mg IV Q6H PRN PRN Reason: Nausea &/or Vomiting Stop: 06/06/25 15:19 Metoprolol Succinate (Metoprolol Succ 25mg Ext Rel Tab) [facility] Stop: 06/07/25 08:59 Last Admin: 05/10/25 07:43 Dose: 25 mg Metoprolol Tartrate (Metoprolol Tartrate 1 Mg/Ml Vial) 5 mg IV Q6 PRN PRN Reason: Tachycardia Stop: 06/08/25 00:00 Montelukast Sodium (Montelukast Sodium 10 Mg Tablet) 10 mg PO [facility] Stop: 06/06/25 20:59 Last Admin: 05/09/25 20:31 Dose: 10 mg Naloxone HCl (Naloxone Hcl 0.4 Mg/1 Ml Vial/Carp) 0.1 mg IV Q5M PRN PRN Reason: Oversedation/Resp depression Stop: 06/06/25 15:19 Ondansetron HCl (Ondansetron Inj 2 Mg/Ml 2 Ml Vial) 4 mg IV Q6H PRN PRN Reason: Nausea &/or Vomiting Stop: 06/06/25 15:19 Ondansetron HCl (Ondansetron 4 Mg Od Tab) 4 mg PO Q6H PRN PRN Reason: Nausea Stop: 06/06/25 15:19 Oxycodone HCl (Oxycodone Hcl Ir 5 Mg Tab (Immediate Release)) 5 - 10 mg PO Q4H PRN PRN Reason: MOD/SEV Pain & Pre PT Stop: 05/21/25 15:19 Last Admin: 05/09/25 20:47 Dose: 5 mg Pantoprazole Sodium (Pantoprazole 40 Mg Tab) [facility] [place] Stop: 06/08/25 12:14 Last Admin: 05/09/25 14:57 Dose: 40 mg Pneumococcal Polyvalent Vaccine (Do Not Administer Pneumococcal Vaccine) 1 each N/A PRN PRN PRN Reason: Notification Stop: 06/06/25 15:19 Senna/Docusate Sodium (Docusate Sodium/Senna 50/8.6mg Tab) 2 tab PO HS [facility] Stop: 06/06/25 20:59 Last Admin: 05/09/25 20:31 Dose: 2 tab Sodium Biphosphate/Sodium Phosphate (Sod Phosphate/Sod Biphosphate Enema 132 Ml Btl) 132 ml [place] ONE PRN PRN Reason: Constipation Stop: 06/06/25 15:19 Spironolactone (Spironolactone 25 Mg Tab) 25 mg PO QAM [facility] Stop: 06/07/25 08:59 Last Admin: 05/08/25 08:21 Dose: 25 mg Tramadol HCl (Tramadol Hcl 50 Mg Tablet) 50 - 100 mg PO Q4H PRN PRN Reason: MOD/SEV Pain & Pre PT Stop: 06/06/25 15:19 Last Admin: 05/07/25 18:21 Dose: 50 mg Vitamin D (Cholecalciferol 125 Mcg (5,000 Units) Tab) 125 mcg PO BID [facility] Stop: 06/06/25 20:59 Last Admin: 05/10/25 07:42 Dose: 125 mcg PG Care Time/CCT Total # of Minutes Spent Total Time Spent with Patient: Total time spent is greater than 50% in coordination of care (as documented) at patient's floor/unit and/or counseling patient: Coding Level of Care Code 84853 SUB INP/OBS CARE 3/50MIN Diagnoses Atrial fibrillation with rapid ventricular response I48.91 Paroxysmal A-fib I48.0 Stage 3b chronic kidney disease (CKD) N18.32 Coronary artery disease, unspecified vessel or lesion type, unspecified whether angina present, unspecified whether [place] or transplanted heart I25.10 Associated angina: unspecified whether angina present Coronary Disease-Associated Artery/Lesion type: unspecified vessel or lesion type [place] vs. transplanted heart: unspecified whether [place] or transplanted heart Pacemaker Z95.0 (4) CAD (coronary artery disease) Associated angina: unspecified whether angina present Coronary Disease- Associated Artery/Lesion type: unspecified vessel or lesion type [place] vs. transplanted heart: unspecified whether [place] or transplanted heart Qualified Code(s): I25.10 - Atherosclerotic heart disease of [place] coronary artery without angina pectoris
[2025-05-10] MEDS: POTASSIUM CHLORIDE 20 MEQ/15 ML UDC PO ONE (11:15)
--- NOTE | 2025-05-10 15:14 | Hospitalist Progress Note ---
Date of Service May 10, 2025 Assessment & Plan (1) Two-level lumbosacral spondylosis with radiculopathy: (2) S/P spinal surgery: Plan: Patient is a 74-year-old female with past medical history significant for HLD, HTN, CAD s/p LAD stenting x 2 in March 2022, mild bilateral carotid artery stenosis, chronic systolic HF, history of idiopathic nonischemic cardiomyopathy with recovered EF, paroxysmal atrial fibrillation anticoagulated on Eliquis, LBBB, history PVCs, paroxysmal SVT s/p biventricular pacemaker placement, CKD stage IIIb, anemia of chronic disease, seronegative rheumatoid arthritis, IBS and other problems listed below who s/p L4-S1 decompression and spinal fusion with Dr. Lagunas on 05/07/25. Lumbosacral spondylosis with radiculopathy Lumbar disc herniation, stenosis Postoperative acute blood loss anemia --S/P lumbar decompression, fusion surgery by Dr. Lagunas on 05/07/2025 Wound care, activity, pain control as per primary team Continue bowel regimen to prevent constipation Continue PT OT: Recommends to return home A-fib RVR Troponin elevation likely demand ischemia secondary to tachycardia --ECHO: Mild concentric LVH. Septal motion consistent with conduction abnormality. No regional wall motion abnormality. EF 50 to 55%. Left atrium is moderately dilated. Trace mitral regurgitation, moderate tricuspid regurgitation. Right ventricular systolic pressure elevated at 40 to 50 mmHg --Started on IV amiodarone>> transition to oral amiodarone 200 mg twice a day -Continue metoprolol succinate --Appreciate cardiology input --Resume anticoagulation with Eliquis as soon as possible once cleared by surgery --Monitor and replete electrolytes as needed --Cardiology following Acute blood loss anemia Currently no indication for blood transfusion Monitor CBC Continue iron supplements (3) Paroxysmal A-fib: Plan: Management as above (4) Rheumatoid arthritis: Plan: Hold leflunomide postop for now Can resume as per primary service (5) CAD (coronary artery disease): Plan: S/p LAD stenting x 2 in 03/2022 F/w cardiology @ [facility]; continue ASA as per primary service (6) Stage 3b chronic kidney disease (CKD): Plan: Baseline Cr 1.3-1.7 per chart review Cr at baseline Avoid nephrotoxic agents when able Monitor renal function (7) Chronic systolic heart failure: Plan: TTE, 07/2023: LVEF = 55-60%, mild MR, mild TR, moderately enlarged LA, borderline pulm HTN, grade I DD Appears euvolemic on postop exam --> will hold Aldactone for now; resumed lasix DVT PX: SCDs as per primary service Resume Eliquis as soon as possible PCP: Yamilet Fernandes, Disposition: Routine d/c planning as per primary service Admission and Anticipated Discharge Date Admission Date: May 07, 2025 Subjective Patient is seen and examined at bedside Subjectively feels a lot better today Denies any pain at surgical site Heart rate is well-controlled Denies any issues with swallowing today Also denies any chest pain, dyspnea, nausea, vomiting, abdominal pain Review of Systems Review of Systems: All systems reviewed & are unremarkable except as noted in Subjective Physical Exam Physical Exam: Physical Exam: Vitals signs as noted above General Appearance:Moderately built and nourished, no apparent distress Head: normocephalic, Atraumatic Eyes: normal inspection, EOMI Neck: supple, Trachea midline Respiratory/Chest: Normal breath sounds, CTA, No accessory muscle use Cardiovascular: Irregularly irregular, No murmur Abdomen/GI:Soft, Non tender, Bowel sounds present Extremities/Musculoskeletal:normal inspection, no edema Back: Lower back surgical site in dressing Neurologic/Psych:AAOX3, grossly no focal neurological deficits Skin: normal color, warm Results & Data Results & Data Vital Signs (Past 12 Hours) Vital Signs Temp Pulse Resp BP Pulse Ox O2 Del Method 05/10/25 08:59 Room Air 05/10/25 07:38 36.7 C 70 18 128/71 95 Room Air Laboratory Results Short CBC 05/10/25 Range/Units 05:42 WBC 9.75 (4.8-10.8) K/ul Hgb 8.2 L (12.0-16.0) g/dl Hct 24.7 L (37.0-47.0) % Plt Count 233 (130-400) K/uL BMP 05/10/25 05:42 Sodium 137 Potassium 3.6 Chloride 100 Carbon Dioxide 27 BUN 37 H Creatinine 1.64 H Glucose 93 Calcium 8.8 (4) Rheumatoid arthritis Rheumatoid arthritis location: unspecified site Rheumatoid factor presence: unspecified presence Qualified Code(s): M06.9 - Rheumatoid arthritis, unspecified (5) CAD (coronary artery disease) Coronary Disease-Associated Artery/Lesion type: unspecified vessel or lesion type [place] vs. transplanted heart: unspecified whether [place] or transplanted heart Associated angina: unspecified whether angina present Qualified Code(s): I25.10 - Atherosclerotic heart disease of [place] coronary artery without angina pectoris
[2025-05-10] MEDS: AMIODARONE 200 MG TAB PO SCH (16:27)
[2025-05-11 06:07] LABS: Anion Gap 11.0 (3-11); Blood Urea Nitrogen 37.0 mg/dl (6-23); Calcium 9.4 mg/dl (8.6-10.3); Carbon Dioxide 28.0 mmol/L (21-32); Chloride 98.0 mmol/L (98-107); Creatinine Clr Calc Pharmacy 17.0 ml/min; Glucose 95.0 mg/dl (70-99(Fasting)); Magnesium 2.1 mg/dl (1.7-2.4); Potassium 3.7 mmol/L (3.5-5.1); Sodium 137.0 mmol/L (136-145)
--- NOTE | 2025-05-11 08:04 | Cardiology Progress Note ---
Date of Service May 11, 2025 Assessment & Plan (1) Atrial fibrillation with rapid ventricular response: (2) Paroxysmal A-fib: (3) Stage 3b chronic kidney disease (CKD): (4) CAD (coronary artery disease): (5) Pacemaker: Plan 74-year-old woman status post spinal surgery + atrial fibrillation post operatively Patient appears to be in NSR Mild troponin elevation post operatively LVEF 50-55%, No WMA, no major valvular pathology reported SBP at goal (112 mmHg) HR 72 BPM K+ goal 4.5-5 - please replete Mag goal >[address] Plans to consider anticoagulation when safe from surgical perspective - would use Eliquis 2.5 mg po BID (weight/creat) Amiodarone 200 mg po BID x 1 week - then 200 mg po per day Continue Toprol XL 25 mg po per day Continue Aldactone 25 mg po per day Patient appears euvolemic - creatinine rising Consider reduce lasix to QD dosing - 40 mg po per day Mild troponin elevation post operatively - once patient recovers, may consider coronary risk evaluation (stress test?) 50 min spent addressing challenges, educating and advancing daily plan of care Pt to follow up with [facility] Please call back with any additional question Jose Raul Gil Admission and Anticipated Discharge Date Admission Date: May 07, 2025 Subjective Events Overnight: * None * Telemetry - V paced - HR 60's Subjective: * No complaints * Back pain is controlled Review of Systems Review of Systems: All systems reviewed & are unremarkable except as noted in HPI & below Physical Exam Physical Exam: Overweight No elevation in JVP S1S2 2/6 systolic murmur CTA B Lumbar drain in place/bandaged No C/C/E Warm and perfused Results & Data Vital Signs (Past 12 Hours) Vital Signs Temp Pulse Pulse Resp BP Pulse Ox O2 Del Method 05/11/25 08:00 53 L 05/11/25 03:22 36.7 C 59 L 16 114/70 97 Room Air 05/11/25 02:25 58 L 05/10/25 23:11 36.4 C L 61 18 147/66 H 95 Room Air 05/10/25 21:42 Room Air Laboratory Results Comprehensive Metabolic Panel 05/11/25 Range/Units 05:33 Sodium 137 (136-145) mmol/L Potassium 3.7 (3.5-5.1) mmol/L Chloride 98 (98-107) mmol/L Carbon Dioxide 28 (21-32) mmol/L BUN 37 H (6-23) mg/dl Creatinine 1.88 H (0.6-1.2) mg/dl Glucose 95 (70-99(Fasting)) mg/dl Calcium 9.4 (8.6-10.3) mg/dl Intake and Output 05/10/25 05/11/25 05/11/25 22:59 06:59 14:59 Intake Total 360 / 1668.472 150 / 1668.472 Output Total 70 / 151 80 / 151 Balance 290 / 1517.472 70 / 1517.472 Intake: Oral 360 / 1460 150 / 1460 Output: Drain Output 70 / 150 80 / 150 Lower Back PHIL #1 70 / 150 80 / 150 Other: # Unmeasured Voids 1 1 Diagnostic Findings ECHOcardiogram: 05-09-2025 LVEF 50-55% No WMA reported LA moderately Dilated MR - Mild TR - Moderate Medications Administered Current Inpatient Medications Acetaminophen (Acetaminophen 500 Mg Tab) 1,000 mg PO Q8H PRN PRN Reason: MILD Pain (1,2,3) & Pre PT Stop: 06/06/25 15:19 Last Admin: 05/08/25 19:52 Dose: 1,000 mg Al Hydrox/Mg Hydrox/Simethicone (Aluminum/Magnesium Susp 30 Ml Udc) 30 ml PO Q6H PRN PRN Reason: Dyspepsia Stop: 06/06/25 15:19 Amiodarone HCl (Amiodarone 200 Mg Tab) 200 mg PO BIDM [facility] Stop: 06/09/25 16:59 Last Admin: 05/10/25 16:27 Dose: 200 mg Aspirin (Aspirin 81 Mg Ectab) 81 mg PO QAM [facility] Stop: 06/07/25 08:59 Last Admin: 05/10/25 07:43 Dose: 81 mg Bisacodyl (Bisacodyl 10 Mg Supp) 10 mg [place] DAILY PRN PRN Reason: Constipation Stop: 06/06/25 15:19 Calcitriol (Calcitriol 0.25 Mcg Capsule) 0.25 mcg PO BID [facility] Stop: 06/06/25 20:59 Last Admin: 05/10/25 20:04 Dose: 0.25 mcg Diphenhydramine HCl (Diphenhydramine Capsule 25 Mg Cap) 25 mg PO Q6H PRN PRN Reason: Allergic Rhinitis/Insomnia Stop: 06/06/25 15:19 Famotidine (Famotidine 20 Mg Tab) 20 mg PO Q12H PRN PRN Reason: Dyspepsia Stop: 06/06/25 15:19 Last Admin: 05/08/25 08:30 Dose: 20 mg Ferrous Sulfate (Ferrous Sulfate 325 Mg Tab) 325 mg PO QAM [facility] Stop: 06/07/25 08:59 Last Admin: 05/10/25 07:42 Dose: 325 mg Furosemide (Furosemide 40 Mg Tab) 40 mg PO BID [facility] Stop: 06/06/25 20:59 Last Admin: 05/10/25 20:05 Dose: 40 mg Gabapentin (Gabapentin 300 Mg Cap) 300 mg PO TID [facility] Stop: 06/06/25 20:59 Last Admin: 05/10/25 20:05 Dose: 300 mg Hydromorphone HCl (Hydromorphone Inj 0.5 Mg/0.5 Ml Syr) 0.5 mg IV Q3H PRN PRN Reason: MODERATE Pain(4,5,6)/Pre PT Stop: 05/21/25 15:19 Hydromorphone HCl (Hydromorphone Inj 1 Mg/Ml Syringe) 1 mg IV Q3H PRN PRN Reason: SEVERE Pain (7,8,9,10) Stop: 05/21/25 15:19 Promethazine HCl (Phenergan) 12.5 mg in 50.5 mls @ 202 mls/hr IV Q6H PRN PRN Reason: Nausea And Vomiting Stop: 06/06/25 15:19 Cefazolin Sodium (Ancef 1000mg) 1,000 mg in 7.5 mls @ 2.5 mls/min IV Q12H [facility] Stop: 05/15/25 14:29 Last Admin: 05/11/25 02:42 Dose: 2.5 mls/min Influenza Virus Vaccine Quadrival (Do Not Administer Flu Vaccine) 1 each N/A PRN PRN PRN Reason: Notification Stop: 06/06/25 15:19 Lorazepam (Lorazepam 0.5 Mg Tab) 0.5 mg PO Q8H PRN PRN Reason: Sedation/Anxiety Stop: 06/06/25 15:19 Lorazepam (Lorazepam 2 Mg/1 Ml Vial) 0.5 mg IV Q8H PRN PRN Reason: Sedation/Anxiety Stop: 06/06/25 15:19 Magnesium Hydroxide (Magnesium Hydroxide Susp 30 Ml Udc) 30 ml PO Q24H PRN PRN Reason: Constipation Stop: 06/06/25 15:19 Metoclopramide HCl (Metoclopramide Hcl Inj 5 Mg/Ml 2 Ml Vial) 10 mg IV Q6H PRN PRN Reason: Nausea &/or Vomiting Stop: 06/06/25 15:19 Metoprolol Succinate (Metoprolol Succ 25mg Ext Rel Tab) 25 mg PO QAM [facility] Stop: 06/07/25 08:59 Last Admin: 05/10/25 07:43 Dose: 25 mg Metoprolol Tartrate (Metoprolol Tartrate 1 Mg/Ml Vial) 5 mg IV Q6 PRN PRN Reason: Tachycardia Stop: 06/08/25 00:00 Montelukast Sodium (Montelukast Sodium 10 Mg Tablet) 10 mg PO [facility] Stop: 06/06/25 20:59 Last Admin: 05/10/25 20:06 Dose: 10 mg Naloxone HCl (Naloxone Hcl 0.4 Mg/1 Ml Vial/Carp) 0.1 mg IV Q5M PRN PRN Reason: Oversedation/Resp depression Stop: 06/06/25 15:19 Ondansetron HCl (Ondansetron Inj 2 Mg/Ml 2 Ml Vial) 4 mg IV Q6H PRN PRN Reason: Nausea &/or Vomiting Stop: 06/06/25 15:19 Ondansetron HCl (Ondansetron 4 Mg Od Tab) 4 mg PO Q6H PRN PRN Reason: Nausea Stop: 06/06/25 15:19 Oxycodone HCl (Oxycodone Hcl Ir 5 Mg Tab (Immediate Release)) 5 - 10 mg PO Q4H PRN PRN Reason: MOD/SEV Pain & Pre PT Stop: 05/21/25 15:19 Last Admin: 05/09/25 20:47 Dose: 5 mg Pantoprazole Sodium (Pantoprazole 40 Mg Tab) [facility] [place] Stop: 06/08/25 12:14 Last Admin: 05/10/25 09:34 Dose: 40 mg Pneumococcal Polyvalent Vaccine (Do Not Administer Pneumococcal Vaccine) 1 each N/A PRN PRN PRN Reason: Notification Stop: 06/06/25 15:19 Senna/Docusate Sodium (Docusate Sodium/Senna 50/8.6mg Tab) 2 tab PO HS [facility] Stop: 06/06/25 20:59 Last Admin: 05/10/25 20:03 Dose: 2 tab Sodium Biphosphate/Sodium Phosphate (Sod Phosphate/Sod Biphosphate Enema 132 Ml Btl) 132 ml [place] ONE PRN PRN Reason: Constipation Stop: 06/06/25 15:19 Spironolactone (Spironolactone 25 Mg Tab) 25 mg PO QAM [facility] Stop: 06/07/25 08:59 Last Admin: 05/08/25 08:21 Dose: 25 mg Tramadol HCl (Tramadol Hcl 50 Mg Tablet) 50 - 100 mg PO Q4H PRN PRN Reason: MOD/SEV Pain & Pre PT Stop: 06/06/25 15:19 Last Admin: 05/07/25 18:21 Dose: 50 mg Vitamin D (Cholecalciferol 125 Mcg (5,000 Units) Tab) 125 mcg PO BID [facility] Stop: 06/06/25 20:59 Last Admin: 05/10/25 20:04 Dose: 125 mcg PG Care Time/CCT Total # of Minutes Spent Total Time Spent with Patient: Total time spent is greater than 50% in coordination of care (as documented) at patient's floor/unit and/or counseling patient: Coding Level of Care Code 56377 SUB INP/OBS CARE 3/50MIN Diagnoses Atrial fibrillation with rapid ventricular response I48.91 Paroxysmal A-fib I48.0 Stage 3b chronic kidney disease (CKD) N18.32 Coronary artery disease, unspecified vessel or lesion type, unspecified whether angina present, unspecified whether [place] or transplanted heart I25.10 Associated angina: unspecified whether angina present Coronary Disease-Associated Artery/Lesion type: unspecified vessel or lesion type [place] vs. transplanted heart: unspecified whether [place] or transplanted heart Pacemaker Z95.0 (4) CAD (coronary artery disease) Associated angina: unspecified whether angina present Coronary Disease- Associated Artery/Lesion type: unspecified vessel or lesion type [place] vs. transplanted heart: unspecified whether [place] or transplanted heart Qualified Code(s): I25.10 - Atherosclerotic heart disease of [place] coronary artery without angina pectoris
--- NOTE | 2025-05-11 08:11 | Discharge Summary ---
Date of Service May 11, 2025 Admission HPI Per Admitting Provider This is a 74-year-old female who presents with chronic persistent back and leg pain after failing course of nonoperative care is here for surgical invention. Admission Exam (Per Admitting) Constitutional WD/WN, vitals as above Eyes PERRL, conjunctivae normal, anicteric sclerae ENMT external ear and nose normal, oropharynx normal Neck normal visual inspection Respiratory normal respiratory effort Cardiovascular Extremities: normal capillary refill Gastrointestinal (Abdomen) Inspection/Auscultation: abdomen normal to inspection Musculoskeletal no cyanosis or clubbing, extremities motor strength 5/5 Extremities: extremities normal to inspection Skin no rashes, warm and dry Neurologic normal touch/pain/proprioception Psychiatric A+Ox3, euthymic affect Eye Contact: good eye contact Discharge Data Consultations 05/07/25 15:20 Consult Hospitalist Routine 05/09/25 10:00 Consult Cardiology Routine Procedures Performed Operation Date: 05/07/25 12:15 Actual Procedures p L4-S1 Decompression and Fusion(Not Applicable) - Raad Lagunas DO Hospital Course (1) Two-level lumbosacral spondylosis with radiculopathy: Patient will be discharged home on postoperative day 3 status post L4-S1 decompression and fusion. Her postoperative course was complicated with A-fib. Cardiology has been consulted. We are going to resume Eliquis today. Otherwise no complaints. PHIL drain output last shift was 80 cc. She is Amling several 100 feet in physical therapy. Pain is controlled. She will be discharged home with her PHIL drain intact. She has instructions to call next week with recordings and further instructions. Discharge Instructions ACTIVITY RECOMMENDATIONS: SELF CARE INSTRUCTIONS AFTER THORACIC/LUMBAR FUSIONS 1. You may walk to your tolerance. It is good exercise for your legs and back. Expect some back and intermittent leg aches and pains. 2. You may perform "counter-top" level activities (make a sandwich, maribel with a project, etc.). 3. No bending or lifting of more than 10 pounds or back twisting of any nature (roll like a log when turning in bed). 4. You may ride in a car for 20-30 minutes at a time. No driving until after your first visit with your doctor. 5. Frequent changes of position and restricting sitting to 30 minutes at a time will help limit the amount of back spasms and stiffness you may experience. 6. You may discontinue the use of ambulatory aids (cane, crutches, etc.) once your strength and confidence allow. 7. You may grinder hardboard the shower and let water strike your incision when you arrive home at least once daily. Do not take a tub bath, sit in a hot tub or go into a swimming pool until after your first recheck in the office. 8. You may resume previous diet. SPECIAL CARE INSTRUCTIONS: VERY IMPORTANT TO READ AND REVIEW A. Your surgical incision has been closed with a cosmetic suture under the skin that will dissolve in about 6 weeks. In 14 days, you can use a pair of clean scissors and cut the suture that is left outside of the skin at the ends of your incision. 1. The small skin tapes can be removed 7 days after surgery if they have not fallen off by that point. 2. You may keep the wound open to air as much as possible to promote healing after post-op day number 5 unless told otherwise by your doctor. 3. If you think the wound looks like it is becoming infected (redness or worsening drainage) and/or you are experiencing fever, chill or worsening back pain and muscle spasms, contact the office so that we may evaluate you as soon as possible. B. Complications are uncommon, but please contact us if you have any signs or symptoms of: 1. wound infection (fever higher than 102.5 degrees F, redness, separation of wound, drainage, or increasing pain from the incision) 2. blood clots in legs (pain, swelling, redness and warmth in legs) 3. urinary tract infection (fever higher than 102.5 degrees F, burning upon urination or increased frequency of urination) 4. nerve problems (inability to walk on your toes or heels, numbness, loss of bowel or bladder control) 5. any other symptoms that concern you C. Please call the office at if you have any concerns or questions about your operation or recovery. D. No smoking! Smoking drastically decreases the chance of a solid fusion. E. Do not take any anti-inflammatory medications (Indocin, Advil, Motrin, Aspirin, Naprosyn, etc.) as these may inhibit the chance of a solid fusion. Tylenol is okay to take for pain. MANAGING PAIN AFTER SPINAL SURGERY 1. Narcotic medication is intended for short-term use and will be provided for surgical pain. Surgical pain usually lasts for a period of 4-6 weeks. Narcotic medication includes Percocet, Vicodin, Darvocet, Tylenol #3 or Lortab. 2. Longer-term pain is more appropriately treated with non-narcotic medication such as Tylenol ES. 3. Muscle spasm is not appropriately treated with narcotics. Muscle relaxers such as Soma, Flexeril or Skelaxin can be used along with Tylenol ES. 4. Remember that we all live with some "aches and pains". This is not unusual or uncommon after an injury or as we get older. a. Back pain is expected and may include muscle spasms for 4 to 6 weeks after surgery. The pain should gradually improve. If the pain worsens for no apparent reason, please contact the office. b. Intermittent leg pain may also be experienced and should not be concerned about unless it worsens for no apparent reason. If so, please contact the office. 5. We will provide appropriate medication within the normal guidelines of their prescribed use. We will also be very cautious and aware of potential abuse and extended duration of patients' medication needs. a. Pain medications are for your comfort and to assist with sleep and rest so that the tissue can heal. They are not provided in order to return to normal activity and should not be used through the day. To do so or worsening pain at night can result from ongoing tissue damage and development of tolerance to the prescribed medicine. 6. Please allow 2-3 days to process refills. Prescriptions will not be mailed but must be picked up at the office. FOLLOW UP VISIT: Keep your scheduled follow-up appointment. Any questions, please call the office at .
--- NOTE | 2025-05-11 08:16 | Orthopedic Progress Note ---
Date of Service May 11, 2025 Assessment & Plan (1) Two-level lumbosacral spondylosis with radiculopathy: Plan: Genet is orthopedically stable for discharge. Will discharge home today if okay with the hospitalist and cardiology team. Okay to resume Eliquis today from an orthopedic standpoint. We are going to send her home with her PHIL drain intact and because of output and resuming Eliquis. She has received instructions on her discharge paperwork regarding this. Admission and Anticipated Discharge Date Admission Date: May 07, 2025 Subjective And has postoperative day 3 status post L4-S1 decompression and fusion. She has had A-fib postoperatively. Otherwise feels well. Preoperative symptoms greatly improved. She is walking several 100 feet in physical therapy. PHIL drain output last shift was 80 cc. Review of Systems Review of Systems: All systems reviewed & are unremarkable except as noted in HPI & below Physical Exam Physical Exam: Alert and oriented x 3 Sitting on the edge of the bed in no acute distress administered around with the ease Lumbar dressing is clean dry and intact with functioning PHIL drain Strength intact bilateral lower extremities Results & Data Vital Signs (Past 12 Hours) Vital Signs Temp Pulse Pulse Resp BP Pulse Ox O2 Del Method 05/11/25 08:00 53 L 05/11/25 03:22 36.7 C 59 L 16 114/70 97 Room Air 05/11/25 02:25 58 L 05/10/25 23:11 36.4 C L 61 18 147/66 H 95 Room Air 05/10/25 21:42 Room Air
[2025-05-11 08:27] VITALS: RESP 18
[2025-05-11 11:36] VITALS: TEMP 97.9; O2SAT 96
--- NOTE | 2025-05-11 11:43 | Hospitalist Progress Note ---
Date of Service May 11, 2025 Assessment & Plan (1) Two-level lumbosacral spondylosis with radiculopathy: (2) S/P spinal surgery: Plan: Patient is a 74-year-old female with past medical history significant for HLD, HTN, CAD s/p LAD stenting x 2 in March 2022, mild bilateral carotid artery stenosis, chronic systolic HF, history of idiopathic nonischemic cardiomyopathy with recovered EF, paroxysmal atrial fibrillation anticoagulated on Eliquis, LBBB, history PVCs, paroxysmal SVT s/p biventricular pacemaker placement, CKD stage IIIb, anemia of chronic disease, seronegative rheumatoid arthritis, IBS and other problems listed below who s/p L4-S1 decompression and spinal fusion with Dr. Lagunas on 05/07/25. Lumbosacral spondylosis with radiculopathy Lumbar disc herniation, stenosis Postoperative acute blood loss anemia --S/P lumbar decompression, fusion surgery by Dr. Lagunas on 05/07/2025 Wound care, activity, pain control as per primary team Continue bowel regimen to prevent constipation Continue PT OT: Recommends to return home Advised to follow-up with primary care physician, surgeon on discharge A-fib RVR Troponin elevation likely demand ischemia secondary to tachycardia --ECHO: Mild concentric LVH. Septal motion consistent with conduction abnormality. No regional wall motion abnormality. EF 50 to 55%. Left atrium is moderately dilated. Trace mitral regurgitation, moderate tricuspid regurgitation. Right ventricular systolic pressure elevated at 40 to 50 mmHg --Started on IV amiodarone>> transition to oral amiodarone 200 mg twice a day -Continue metoprolol succinate --Appreciate cardiology input --Resume anticoagulation with Eliquis as soon as possible once cleared by surgery --Monitor and replete electrolytes as needed -- Plan to discharge on amiodarone 200 mg twice a day for 1 week and then 200 mg daily Advised to follow-up with cardiology on discharge in 1 to 2 weeks Acute blood loss anemia Currently no indication for blood transfusion Monitor CBC Continue iron supplements (3) Paroxysmal A-fib: Plan: Management as above (4) Rheumatoid arthritis: Plan: Hold leflunomide postop for now Can resume as per primary service (5) CAD (coronary artery disease): Plan: S/p LAD stenting x 2 in 03/2022 F/w cardiology @ [facility]; continue ASA as per primary service (6) Stage 3b chronic kidney disease (CKD): Plan: Baseline Cr 1.3-1.7 per chart review Cr at baseline Avoid nephrotoxic agents when able Monitor renal function (7) Chronic systolic heart failure: Plan: TTE, 07/2023: LVEF = 55-60%, mild MR, mild TR, moderately enlarged LA, borderline pulm HTN, grade I DD Appears euvolemic on postop exam --> will hold Aldactone for now; resumed lasix DVT PX: SCDs as per primary service Resume Eliquis as soon as possible PCP: Yamilet Fernandes, Disposition: Routine d/c planning as per primary service Admission and Anticipated Discharge Date Admission Date: May 07, 2025 Subjective Patient is seen and examined at bedside No new complaints Heart rate is controlled Discussed with cardiology today Denies any pain at surgical site Also denies any chest pain, dyspnea, nausea, vomiting, abdominal pain Plan to be discharged home today Review of Systems Review of Systems: All systems reviewed & are unremarkable except as noted in Subjective Physical Exam Physical Exam: Physical Exam: Vitals signs as noted above General Appearance:Moderately built and nourished, no apparent distress Head: normocephalic, Atraumatic Eyes: normal inspection, EOMI Neck: supple, Trachea midline Respiratory/Chest: Normal breath sounds, CTA, No accessory muscle use Cardiovascular: Irregularly irregular, No murmur Abdomen/GI:Soft, Non tender, Bowel sounds present Extremities/Musculoskeletal:normal inspection, no edema Back: Lower back surgical site in dressing Neurologic/Psych:AAOX3, grossly no focal neurological deficits Skin: normal color, warm Results & Data Results & Data Vital Signs (Past 12 Hours) Vital Signs Temp Pulse Pulse Pulse Resp BP BP 05/11/25 11:35 36.6 C 59 L 18 110/64 05/11/25 08:27 36.9 C 72 18 112/71 05/11/25 08:00 53 L 05/11/25 03:22 36.7 C 59 L 16 114/70 05/11/25 02:25 58 L Pulse Ox O2 Del Method 05/11/25 11:35 96 Room Air 05/11/25 08:27 98 Room Air 05/11/25 08:00 05/11/25 03:22 97 Room Air 05/11/25 02:25 Laboratory Results BMP 05/11/25 05:33 Sodium 137 Potassium 3.7 Chloride 98 Carbon Dioxide 28 BUN 37 H Creatinine 1.88 H Glucose 95 Calcium 9.4 (4) Rheumatoid arthritis Rheumatoid arthritis location: unspecified site Rheumatoid factor presence: unspecified presence Qualified Code(s): M06.9 - Rheumatoid arthritis, unspecified (5) CAD (coronary artery disease) Associated angina: unspecified whether angina present Coronary Disease- Associated Artery/Lesion type: unspecified vessel or lesion type [place] vs. transplanted heart: unspecified whether [place] or transplanted heart Qualified Code(s): I25.10 - Atherosclerotic heart disease of [place] coronary artery without angina pectoris
[2025-05-11 12:15] VITALS: BP 112/71; PULSE 69
--- NOTE | 2025-05-11 14:33 | Electrocardiogram Report ---
Test Reason : Blood Pressure : */* mmHG Vent. Rate : 149 BPM Atrial Rate : 144 BPM P-R Int : * ms QRS Dur : 134 ms QT Int : 338 ms P-R-T Axes : * 229 139 degrees QTcB Int : 532 ms Atrial fibrillation with rapid ventricular response Indeterminate axis Non-specific intra-ventricular conduction block Possible Lateral infarct , age undetermined Abnormal ECG When compared with ECG of 25-Apr-2025 10:20, Atrial fibrillation has replaced Electronic ventricular pacemaker Vent. rate has increased by 67 bpm Confirmed by Mukund Arthur ([id number]) on 05/11/2025 2:32:57 PM Referred By: Raad Lagunas Confirmed By: Mukund Arthur
--- NOTE | 2025-05-11 14:46 | Electrocardiogram Report ---
Test Reason : Blood Pressure : */* mmHG Vent. Rate : 151 BPM Atrial Rate : * BPM P-R Int : * ms QRS Dur : 130 ms QT Int : 332 ms P-R-T Axes : * -87 129 degrees QTcB Int : 526 ms Atrial fibrillation with rapid ventricular response Left axis deviation Non-specific intra-ventricular conduction block Cannot rule out Inferior infarct , age undetermined Possible Anterolateral infarct (cited on or before 08-May-2025) Abnormal ECG When compared with ECG of 08-May-2025 21:57, (unconfirmed) No significant change was found Confirmed by Mukund Arthur ([id number]) on 05/11/2025 2:46:16 PM Referred By: Raad Lagunas Confirmed By: Mukund Arthur
--- NOTE | 2025-05-11 14:47 | Electrocardiogram Report ---
Test Reason : Blood Pressure : */* mmHG Vent. Rate : 143 BPM Atrial Rate : 143 BPM P-R Int : 184 ms QRS Dur : 130 ms QT Int : 274 ms P-R-T Axes : 9 -68 124 degrees QTcB Int : 422 ms Sinus tachycardia with occasional Premature ventricular complexes Left axis deviation Non-specific intra-ventricular conduction block Minimal voltage criteria for LVH, may be normal variant ( [place] product ) Possible Anterolateral infarct (cited on or before 08-May-2025) Abnormal ECG When compared with ECG of 08-May-2025 22:45, (unconfirmed) Sinus rhythm has replaced Atrial fibrillation Confirmed by Mukund Arthur ([id number]) on 05/11/2025 2:47:34 PM Referred By: Raad Lagunas Confirmed By: Mukund Arthur
--- NOTE | 2025-05-11 14:54 | Electrocardiogram Report ---
Test Reason : Blood Pressure : */* mmHG Vent. Rate : 65 BPM Atrial Rate : 65 BPM P-R Int : 100 ms QRS Dur : 114 ms QT Int : 440 ms P-R-T Axes : * 0 84 degrees QTcB Int : 457 ms Atrial-sensed ventricular-paced rhythm Biventricular pacemaker detected Abnormal ECG When compared with ECG of 09-May-2025 03:51, (unconfirmed) Electronic ventricular pacemaker has replaced Sinus rhythm Vent. rate has decreased by 78 bpm Confirmed by Mukund Arthur ([id number]) on 05/11/2025 2:54:21 PM Referred By: Raad Lagunas Confirmed By: Mukund Arthur
--- NOTE | 2025-05-11 14:59 | Electrocardiogram Report ---
Test Reason : Blood Pressure : */* mmHG Vent. Rate : 65 BPM Atrial Rate : 65 BPM P-R Int : 92 ms QRS Dur : 120 ms QT Int : 496 ms P-R-T Axes : 19 205 93 degrees QTcB Int : 515 ms AV sequential or dual chamber electronic pacemaker Premature ventricular complexes Biventricular pacemaker detected Abnormal ECG When compared with ECG of 09-May-2025 13:59, (unconfirmed) Premature ventricular complexes are now Present Confirmed by Mukund Arthur ([id number]) on 05/11/2025 2:58:46 PM Referred By: Raad Lagunas Confirmed By: Mukund Arthur
== END 2025-05-11 13:21 | disposition home or self-care (01) | DRG 427 ==
LOC: ASU 10:37 → 3E 14:12 → 4W 05-08 22:36